=== PATIENT | female | born 1945 | race Caucasian/White ===

== ENCOUNTER 2018-07-22 13:52 | Emergency (ER) | payer MEDICARE, OTHER ==
[~2018-07-22] VITALS: Ht 165.1 cm; Wt 111.6 kg
[~2018-07-22 13:52] MED LIST: ADVIL LIQUI-GE200 MG PO; ATIVAN1 MG PO; BACTROBAN22 GM TOP; DOXYCYCLINE HY100 MG PO; GLUCOPHAGE500 MG PO; HYDROCHLOROTHIA50 MG PO; LOSARTAN POTASS50 MG PO; MS CONTIN15 MG PO; MS CONTIN30 MG PO; NORCO 10-325 T1 EACH PO; NORCO 7.5-3251 EACH PO; ONE DAILY WITH1 EACH PO; PERCOCET 5-3251 EACH PO; ROBAXIN-750750 MG NG; TESSALON PERLE100 MG PO; VITAMIN B COMP1 EACH PO; VITAMIN D2000 UNI1 PO; ZESTRIL10 MG PO
--- OUTSIDE RECORDS SUMMARY | 2018-07-22 15:26 | XMS | Clinical Summary ---
Demographics + + + | Address | [address] | | | [place] [address] | + + + | Home Phone | | + + + | Preferred Language | Unknown | + + + | Marital Status | | + + + | Orthodox Affiliation | 1077 | + + + | Race | Unknown | + + + | Ethnic Group | Unknown | + + + Author + + + | Author | [facility] | | | and [place] | + + + | Organization | [facility] | | | and [place] | + + + | Address | Unknown | + + + | Phone | Unavailable | + + + Support + + + + + | Name | Relationship | Address | Phone | + + + + + | Marilynn Fernandez | ECON | [address] | | | | | [place] | | | | | [address] | | + + + + + | Rahul Moss | ECON | NA | | | | | [place] | | + + + + + Care Team Providers + +------+ + | Care Handle Machine Operator Name | Role | Phone | + +------+ + | Concepción Correa | PP | | + +------+ + Allergies + + + + + + | Active Allergy | Reactions | Severity | Noted | Comments | | | | | Date | | + + + + + + | Carvedilol | | | 08/07/20 | | | | | | 17 | | + + + + + + | Codeine | Other (See Comments) | Low | 03/28/20 | headaches | | | | | 17 | | + + + + + + | Sulfa Antibiotics | Keena, Other (See | Medium | 03/28/20 | Tongue swelling | | | Comments) | | 17 | | + + + + + + Current Medications + + +--------+---------+------+------+-------+ | Prescription | Sig. | Disp. | Refills | Star | End | Statu | | | | | | t | Date | s | | | | | | Date | | | + + +--------+---------+------+------+-------+ | | Take 1 tablet by | | 1 | 03/2 | | Activ | | losartan-hydrochloro | mouth Daily. | | | 05/17 | | e | | thiazide (HYZAAR) | | | | 17 | | | | 100-25 MG per tablet | | | | | | | + + +--------+---------+------+------+-------+ | Multiple | Take 1 tablet by | | | | | Activ | | Vitamins-Minerals | mouth Daily. | | | | | e | | (CENTRUM SILVER) | | | | | | | | TABS | | | | | | | + + +--------+---------+------+------+-------+ | morphine (MS | Take 2 tablets by | 60 | 0 | 02/1 | | Activ | | CONTIN) 15 mg ER | mouth every 12 | tablet | | 05/17 | | e | | tablet | hours. | | | 18 | | | + + +--------+---------+------+------+-------+ | methocarbamol | Take 1 tablet by | 90 | 1 | 02/1 | | Activ | | (METHOCARBAMOL) 750 | mouth every 6 hours | tablet | | 7/20 | | e | | mg tablet | as needed for Muscle | | | 18 | | | | | spasms. | | | | | | + + +--------+---------+------+------+-------+ | oxyCODONE 10 MG | Take 0.5-1 tablets | 120 | 0 | 02/1 | | Activ | | TABS | by mouth every 6 | tablet | | 7/20 | | e | | | hours as needed for | | | 18 | | | | | Pain. | | | | | | + + +--------+---------+------+------+-------+ Active Problems + + + | Problem | Noted Date | + + + | Obesity (BMI 30-39.9) | 08/02/2017 | + + + | Breast cancer (HCC) | 08/02/2017 | + + + + + | Overview: ACTIVE DIAGNOSIS: Stage IIIC triple negative right | | breast cancer.1. Presentation in June 2012 with complaints | | of enlarging right breast mass.2. Diagnostic mammogram and | | ultrasound on July 16, 2012 were both notable for malignant | | appearing 2.2 cm right breast mass with other nearby malignant | | appearing satellite nodules and the radiographic appearance of | | regionally metastatic disease to the right axilla.3. Right breast | | biopsy was performed on July 26, 2012 returned a grade 3 | | invasive carcinoma of uncertain estrogen receptor expression | | favoring negative and negative for progesterone receptor, | | negative for HER-2/haylee by FISH with an amplification ratio of | | 0.9:1.4. Clinical exam by Dr. Ke Emery on July 07, 2012 was | | notable for the fact that there were no obvious signs of peau | | d'orange to suggest inflammatory breast cancer.5. Dr. Ke Emery | | then performed a right modified radical mastectomy on October 06 | | 2011. Pathological specimen [id number] Norwood | | [facility] was notable for 3 separate | | distinct tumor nodules all of which contained invasive carcinoma | | within the right breast; 2.0 cm, 1.8 cm, and 1.5 cm respectively. | | All 3 tumor nodules were grade 3 and all were estrogen receptor | | negative. A total of 20 right axillary lymph nodes removed and | | all 20 of them contained regionally metastatic disease. The | | presence or absence of extracapsular extension was not | | specifically commented upon.6. She had a PET/CT scan performed on | | October 23, 2012 that was notable for the absence of any | | radiographic evidence of metastatic disease.7. She is status post | | left anterior chest Port-A-Cath by Dr. Ke Emery; this device | | remains in situ and is functional.8. Status post 4 cycles of | | adjuvant TC chemotherapy October 11, 2012 through December 06 | | 2012.9. Status post radiation therapy to the right chest wall of | | the [facility] | | [facility] December 30, 2012 through January | | 201210. Presentation with right upper quadrant pain and | | elevation of tumor marker CA 15 | | | | 3 on July 18, 2013.11. PET/CT scan on June 2013 | | demonstrated a less than 1 cm area of hypermetabolic activity | | within the dome of the liver, SUV 5.77. However further | | subsequent testing with a "triple phase" CT scan of the abdomen | | with contrast on August 04, 2013 did not confirm the presence of | | metastatic disease to liver and she continued on observation.12. | | Chronic pain syndrome due to myofascial contraction of the entire | | right chest wall with severe right upper extremity lymphedema | | leading to a chronic pain syndrome.13. Status post laminectomies | | L3, L4, L5 for the purpose of decompression ([place]) August 02 | | 2016. Last Assessment & Plan: Shelly Padilla | | returned to clinic on 08/09/2017 with her daughter, Holley Fernandez | | and her granddaughter for follow-up of her stage IIIC triple | | negative Right breast cancer.Interval history is notable for the | | fact that Shelly underwent a lumbar laminectomy by Dr. Honeycutt on | | August 02, 2017.Chief complaint is lower back pain.Clinical exam | | is notable for severe right upper extremity | | lymphedema.Laboratory exam is notable for no signs of | | dissemination of metastatic breast cancer.Assessment; Stage IIIC | | triple negative right breast cancer. Chronic pain syndrome due to | | right chest wall myofascial contraction and right upper | | extremity lymphedema from breast cancer treatment. Janett's | | chronic pain syndrome has been exacerbated by recent lumbar | | laminectomy. Janett feels that she is not getting enough pain | | relief from oxycodone and is worried about a surgical | | complication. I contacted the Neurosurgery department and they | | graciously agreed to have Janett undergo assessment of her lumbar | | back pain today.Extended, 25 minute encounter spent in active | | listening and counseling regarding issues of both acute and | | chronic pain.Medical oncology follow-up in 2 months with mckayla | | tammy. | + + + +---+ | Radiculopathy, lumbosacral region | | + +---+ | Low back pain | | + +---+ | Intervertebral disc disorders with radiculopathy, lumbar region | | + +---+ | Diabetes (HCC) | | + +---+ Family History + + +------+ + | Medical History | Relation | Name | Comments | + + +------+ + | No Known Problems | Brother | | | + + +------+ + | No Known Problems | Child | | | + + +------+ + | No Known Problems | Child | | | + + +------+ + | Gout | Father | | | + + +------+ + | No Known Problems | Maternal | | | | | Grandfath | | | | | er | | | + + +------+ + | No Known Problems | Maternal | | | | | Grandmoth | | | | | er | | | + + +------+ + | COPD | Mother | | | + + +------+ + | Cancer | Mother | | lung | + + +------+ + | Alcohol abuse | Other | | | + + +------+ + | Arthritis | Other | | | + + +------+ + | Cancer | Other | | | + + +------+ + | Hypertension | Other | | | + + +------+ + | No Known Problems | Paternal | | | | | Grandfath | | | | | er | | | + + +------+ + | No Known Problems | Paternal | | | | | Grandmoth | | | | | er | | | + + +------+ + + +------+ + + | Relation | Name | Status | Comments | + +------+ + + | Brother | | Alive | | + +------+ + + | Child | | Alive | | + +------+ + + | Child | | Alive | | + +------+ + + | Father | | | | | | | (Age | | | | | 86) | | + +------+ + + | Maternal Grandfather | | | | + +------+ + + | Maternal Grandmother | | | | + +------+ + + | Mother | | | | | | | (Age | | | | | 77) | | + +------+ + + | Other | | | | + +------+ + + | Paternal Grandfather | | | | + +------+ + + | Paternal Grandmother | | | | + +------+ + + Social History + +-------+ +--------+------+ | Tobacco Use | Types | Packs/Day | Years | Date | | | | | Used | | + +-------+ +--------+------+ | Never Smoker | | | | | + +-------+ +--------+------+ + +---+---+---+ | Smokeless Tobacco: | | | | | Never Used | | | | + +---+---+---+ + + +---------+ + | Alcohol Use | Drinks/We | oz/Week | Comments | | | ek | | | + + +---------+ + | Yes | | | social | + + +---------+ + + + + | Sex Assigned at | Date Recorded | | | | + + + | Not on file | | + + + Last Filed Vital Signs + + + + | Vital Sign | Reading | Time Taken | + + + + | Blood Pressure | 109/78 | 11/06/20171220 PST | + + + + | Pulse | 94 | 11/06/20171220 PST | + + + + | Temperature | 37.3 C (99.1 F) | 08/09/20171311 PDT | + + + + | Respiratory Rate | 20 | 08/09/20171311 PDT | + + + + | Oxygen Saturation | 93% | 08/09/20171311 PDT | + + + + | Inhaled Oxygen | - | - | | Concentration | | | + + + + | Weight | 113.9 kg (251 lb) | 11/06/20171220 PST | + + + + | Height | 170.2 cm (5' 7") | 11/06/20171220 PST | + + + + | Body Mass Index | 39.31 | 11/06/20171220 PST | + + + + Plan of Treatment + + + + + | Health Maintenance | Due Date | Last Done | Comments | + + + + + | Diabetic Eye Exam | | | | | (Bi-Annually) | 1 | | | + + + + + | Diabetic Foot Exam | | | | | | 1 | | | + + + + + | Hemoglobin A1c Q3 | | | | | Months | 1 | | | + + + + + | Vaccine: | | | | | Dtap/Tdap/Td (1 - | 2 | | | | Tdap) | | | | + + + + + | Colorectal Cancer | | | | | Screening | 3 | | | | (Colonoscopy) | | | | + + + + + | Vaccine: Zoster (1 | | | | | of 2) | 3 | | | + + + + + | Vaccine: | | | | | Pneumococcal 65+ | 8 | | | | High/Highest Risk (1 | | | | | of 2 - PCV13) | | | | + + + + + | Statin Therapy | | | | | (optimal intensity) | 5 | | | + + + + + | Vaccine: Influenza | | | | | (#1) | 8 | | | + + + + + Implants + +--------+--------+ +--------+--------+--------+ | Implanted | Type | Area | Manufacture | Device | Expira | Model | | | | | r | | tion | / | | | | | | Identi | Date | Serial | | | | | | fier | | / Lot | + +--------+--------+ +--------+--------+--------+ | Imp Spn Spcr Peek Xlw | Generi | | NUVASIVE - | | | [id number] | | [id number] - | c | | NVSV | | | 5 / / | | [id number]: Qty: 1 on | | | | | | | | 08/02/2017 by Hank Honeycutt | | | | | | | | DO Jeanette | | | | | | | + +--------+--------+ +--------+--------+--------+ | Soniya Burton Xlct4 10d [id number] | Generi | | NUVASIVE - | | | [id number] | | - [id number]: Qty: 1 | c | | NVSV | | | 5 / / | | on 08/02/2017 by Yinka, | | | | | | | Romeo Reid DO | | | | | | | + +--------+--------+ +--------+--------+--------+ | Imp Nasir Sext 4.75x65 Solera - | Generi | Right: | MEDTRONIC - | | | [id number] | | [id number]: Qty: 2 | c | Back | MEDT | | | [id number] / | | on 08/02/2017 by Yinka, | | | | | | / | | Hank Reid DO | | | | | | | + +--------+--------+ +--------+--------+--------+ | Sepideh Fischeron 10cc Dbm - | Graft | | MEDTRONIC - | | 01/18/ | [id number] | | [id number]: Qty: 1 | | | MEDT | | 2020 | | | on 08/02/2017 by Yinka, | | | | | | [id number] | | Hank Reid DO | | | | | | 2-035 | | | | | | | | / | + +--------+--------+ +--------+--------+--------+ | Screw 4.75 Xtb Adonis Mas | Screw | Right: | MEDTRONIC - | | | [id number] | | 5.5x60 - [id number]: | | Back | MEDT | | | [id number] | | Qty: 1 on 08/02/2017 by | | | | | | / / | | Hank Honeycutt DO | | | | | | | + +--------+--------+ +--------+--------+--------+ | Screw 4.75 Xtb Adonis Mas | Screw | Right: | MEDTRONIC - | | | [id number] | | 5.5x65 - [id number]: | | Back | MEDT | | | [id number] | | Qty: 1 on 08/02/2017 by | | | | | | / / | | Hank Honeycutt DO | | | | | | | + +--------+--------+ +--------+--------+--------+ | Screw 4.75 Xtb Adonis Mas | Screw | Right: | MEDTRONIC - | | | [id number] | | 6.5x65 - [id number]: | | Back | MEDT | | | 68220 | | Qty: 2 on 08/02/2017 by | | | | | | / / | | Hank Honeycutt DO | | | | | | | + +--------+--------+ +--------+--------+--------+ | Screw 4.75 Xtb Adonis Mas | Screw | Right: | MEDTRONIC - | | | [id number] | | 7.5x65 - [id number]: | | Back | MEDT | | | [id number] | | Qty: 2 on 08/02/2017 by | | | | | | / / | | Hank Honeycutt DO | | | | | | | + +--------+--------+ +--------+--------+--------+ | Screw Set Slra Perc Ti 4.75 - | Screw | Right: | MEDTRONIC - | | | [id number] | | [id number]: Qty: 6 | | Back | MEDT | | | 0 / / | | on 08/02/2017 by Yinka, | | | | | | | | Hank Reid DO | | | | | | | + +--------+--------+ +--------+--------+--------+ Results Not on filefrom Last 3 Months Insurance + +--------+ +--------+ +---------+ | Payer | Benefi | Subscriber | Type | Phone | Address | | | t Plan | ID | | | | | | / | | | | | | | Group | | | | | + +--------+ +--------+ +---------+ | MEDICARE | MEDICA | [id number] | Medica | [phone] | | | | RE | | re | [phone] | | | | PART A | | | | | | | AND B | | | | | + +--------+ +--------+ +---------+ | MEDICAID [place] | MEDICA | [id number] | Medica | [phone] | | | [place] | | id | [phone] | | | | PLUS | | | | | + +--------+ +--------+ +---------+ + +--------+ +--------+ + + | Guarantor Name | Accoun | Relation to | Date | Phone | Billing Address | | | t Type | Patient | of | | | | | | | | | | + +--------+ +--------+ + + | AFSHIN PADILLA | Person | Self [birth year] | Home: | [address] | | [place] | al/Fam | | 1945 | [phone] | [place] | | | [place] | | | [phone] | [phone] | + +--------+ +--------+ + +
--- OUTSIDE RECORDS SUMMARY | 2018-07-22 15:26 | XMS | Clinical Summary ---
Demographics + + + | Address | [address] | | | [place] [address] | + + + | Home Phone | | + + + | Preferred Language | Unknown | + + + | Marital Status | | + + + | Jewish Affiliation | 1077 | + + + | Race | Unknown | + + + | Ethnic Group | Unknown | + + + Author + + + | Author | [facility] | | | and [place] | + + + | Organization | [facility] | | | and [...] [place] | | | | | [address] | | + + + + + | Rahul Moss | ECON | NA | | | | | [place] | | + + + + + Care Team Providers + +------+ + | Care Professor Of Architecture Name | Role | Phone | + [...] October 06 | | 2011. Pathological specimen [id number] Norwood | | [facility] was notable for 3 separate | [...] right chest wall of | | the [facility] | | [facility] December 30, 2012 through January [...] | | NUVASIVE - | | | [id number] | | [id number] - | c | | NVSV | | | 5 / / | | [id number]: Qty: 1 on | | | | | | | | 08/02/2017 by Hank Honeycutt | | | | | | | | DO Jeanette | | | | | | | + +--------+--------+ +--------+--------+--------+ | Soniya Burton Xlct4 10d [id number] | Generi | | NUVASIVE - | | | [id number] | | - [id number]: Qty: 1 | c | | NVSV | | | 5 / / | | on 08/02/2017 by Yinka, | | | | | | | Romeo Reid DO | | | | | | | + +--------+--------+ +--------+--------+--------+ | Imp Nasir Sext 4.75x65 Solera - | Generi | Right: | MEDTRONIC - | | | [id number] | | [id number]: Qty: 2 | c | Back | MEDT | | | [id number] / | | on 08/02/2017 by Yinka, | | | | | | / | | Hank Reid DO | | | | | | | + +--------+--------+ +--------+--------+--------+ | Sepideh Fischeron 10cc Dbm - | Graft | | MEDTRONIC - | | 01/18/ | [id number] | | [id number]: Qty: 1 | | | MEDT | [...] Right: | MEDTRONIC - | | | [id number] | | 5.5x60 - [id number]: | | Back | MEDT | | | [id number] | | Qty: 1 on 08/02/2017 by | | | | | | / / | | Hank Honeycutt DO | | | | | | | + +--------+--------+ +--------+--------+--------+ | Screw 4.75 Xtb Adonis Mas | Screw | Right: | MEDTRONIC - | | | 113142 | | 5.5x65 - [id number]: | | Back | MEDT | | | [id number] | | Qty: 1 on 08/02/2017 by | | | | | | / / | | Hank Honeycutt DO | | | | | | | + +--------+--------+ +--------+--------+--------+ | Screw 4.75 Xtb Adonis Mas | Screw | Right: | MEDTRONIC - | | | [id number] | | 6.5x65 - [id number]: | | Back | MEDT | | | [id number] | | Qty: 2 on 08/02/2017 by | | | | | | / / | | Hank Honeycutt DO | | | | | | | + +--------+--------+ +--------+--------+--------+ | Screw 4.75 Xtb Adonis Mas | Screw | Right: | MEDTRONIC - | | | [id number] | | 7.5x65 - [id number]: | | Back | MEDT | | | 72500 | | Qty: 2 on 08/02/2017 by | | | | | | / / | | Hank Honeycutt DO | | | | | | | + +--------+--------+ +--------+--------+--------+ | Screw Set Slra Perc Ti 4.75 - | Screw | Right: | MEDTRONIC - | | | [id number] | | [id number]: Qty: 6 | | Back | MEDT [...] +--------+ +---------+ | MEDICARE | MEDICA | [id number] | Medica | [phone] | | | | RE | | re | [phone] | | | | PART A | | | | | | | AND B | | | | | + +--------+ +--------+ +---------+ | MEDICAID [place] | MEDICA | [id number] | Medica | [phone] | | | [...] | [place] | | | [phone] | [phone] | + +--------+ +--------+ + +
== END 2018-07-22 16:05 | disposition home or self-care (01) ==
LOC: ED 13:52
DX: R20.0 Anesthesia of skin (principal); I10 Essential (primary) hypertension; E11.9 Type 2 diabetes mellitus without complications; Z88.2 Allergy status to sulfonamides; Z88.8 Allergy status to other drugs, medicaments and biological substances; Z88.5 Allergy status to narcotic agent; Z79.899 Other long term (current) drug therapy
CPT/HCPCS: 70450; 99284

== ENCOUNTER 2019-07-02 10:54 | Inpatient (IN) | payer MEDICARE, OTHER ==
[~2019-07-02] VITALS: Ht 170.2 cm; Wt 112.9 kg
[~2019-07-02 10:54] MED LIST changes: +ALDARA1 EACH TOP; +NEURONTIN100 MG PO
--- NOTE | 2019-07-02 15:22 | NUR ---
PATIENT ARRIVED TO MED SURG.
--- NOTE | 2019-07-02 15:53 | NUR ---
PATIENT ADMITTED SWING BED ON MED SURG. PATIENT 2-3 PERSON TRANSFER FROM WHEEL CHAIR TO BED, USING WALKER. PATIENT REPORTS 4/10 RIGHT LEG PAIN, CRAMPING PAIN THAT SHE HAS EXPERIENCED SINCE BACK SURGERY. RIGHT LEG BECOMES PAINFUL 7-8/10 WITH ACTIVITY AND 3-4/10 WITH REST. PATIENT HAS LARGE BANDAID ON LOWER BACK FROM RECENT BACK SURGERY, REPORTS SURGICAL CHAPITO WERE REMOVED TODAY AT [facility].
[2019-07-02] MEDS ORDERED: CONSTULOSE10 GM/15 M PO (16:51)
[2019-07-02] MEDS ORDERED: CYCLOBENZAPRINE10 MG PO (16:51)
[2019-07-02] MEDS ORDERED: OXYCODONE HCL5 MG PO (16:52)
[2019-07-02] MEDS ORDERED: LOSARTAN-HCTZ1 EAC1 PO (16:53)
[2019-07-02] MEDS ORDERED: NEURONTIN300 MG PO (16:53)
--- NOTE | 2019-07-02 18:05 | NUR ---
PATIENT UPSET WITH ADA DIET, DR. SCHMIDT CHANGED DIET TO REGULAR. DISCUSSED WITH PATIENT ALL HER NEW ORDERS AND HER EXPECTED PARTICIPATION IN PT AND OT FOR SWINGBED. PATIENT SEEMS OKAY WITH PROGRAM.
--- NOTE | 2019-07-02 19:52 | NUR ---
EOUNDED CHARGE. PATIENT IS RESTING IN BED. DISCUSSED PLAN FOR NIGHT CARE. LUCY DUFF IN ROOM TO ASSIST W/NIGHT CARE. NO FURTHER NEEDS NOTED. CALL LIGHT IN REACH.
--- NOTE | 2019-07-02 21:09 | NUR ---
changed into gown, needed assistance. low back band aid inplace. R arm restrictions due to mastectomy and lymphadema of R arm. Brace off at her requests, Declines SCDS due to painful legs when placed. Very obese, generalized edema 2+ R arm and 1+ LE at ankles and feet. Has PT restrictions. Walked to br, tolerated well, voided. No c/o pain. Watching tv. Tolerating fluids, ate 25% of siet. IS at bedside. Coop with assessment. Continues on swing bed status. No IV site
--- NOTE | 2019-07-03 00:33 | NUR ---
Resting, hob elevated. R arm Compression stocking still off, call light at bedside
--- NOTE | 2019-07-03 01:04 | NUR ---
Pt turning self in bed, c/o back pain 04/07. Medicated with flexoril 10mg and Oxycodone 5mg po, no c/ n/v. R arm compression sleeve off, teacahing done, pt receptive, declines to use it at HS, continues to decline Dr Christiana gonzalez was notified earlier in shift, no new orders
--- NOTE | 2019-07-03 04:50 | NUR ---
PT CURRENTLY RESTING, EYES CLOSED, NO RESP DISTRESS. BANDAID ON LOW BACK SURGICAL AREA INPLACE. PT C/O BACK PAIN WAS MEDICATED WITH FLEXERIL AND OXYCODONE WITH GOOD PAIN CONTROL. R ARM RESTRICTIONS DUE TO LYMPHEDEMA. PT HAS COMPRESSION SLEEVE FOR R ARM, NOT IN USE AT THIS TIME HER CHOICE, DECLINED TO USE BRADY HOSES TOO. TEACHING DONE R/T COMPRESSION ITEMS, SEMI RECEPTIVE. WAS ANXIOUS AT BEGINING OF SHIFT, REASSURED. PT HAS MULTIPLE MULTIPLE MOBILITY RESTRICTIONS DUE TO RECENT BACK SURGERY, COOPERATIVE. UP TO BR W 1PA, TOLERATED WELL, AND FOLLOWED PHYSICAL THERAPY RESTRICTIONS. PT ON SWING BED STATUS, CALL LIGHT AND FLUIDS AT BEDSIDE.
--- NOTE | 2019-07-03 05:45 | NUR ---
UP TO BR, VOIDED LARGE AMOUNT OF URINE, BACK TO BED 1PA, TOLERATD WELL, NO C/O PAIN, HELPED WITH REPOSITIONING, LEGS ELEVATED, CALL LIGHT AND FLUIDS AT BEDSIDE
--- NOTE | 2019-07-03 07:10 | NUR ---
REPORT RECIEVED FROM W[place]MELON HARVESTING SUPERVISOR RN. PT IN [facility]. REPORTING PAIN 05/07. PLAN TO MEDICATE. TEDHOSE AND ARM SLEVE NOT ON PER PT REQUEST. PT WITHOUT IV ACCESS. CALL LIGHT IN REACH.
--- NOTE | 2019-07-03 10:41 | NUR ---
PATIENT SITTING UP IN BED WATCHING TV. ASSESSMENT COMPLETE. LUNG SOUNDS DIMINISHED IN LOWER BASES, CLEAR IN UPPERS. PATIENT EXPRESSED CONCERN OVER NOT FULLY UNDERSTANDING HER PLAN OF CARE. PATIENT REASSURED AND PLAN OF CARE REINFORCED WITH HER. PATIENT REPORTS PAIN OF 7/10 AND IS PROVIDED WITH FLEXERIL AND TYLENOL. PATIENT DENIES ANY FURTHER NEEDS AT THIS TIME, CALL LIGHT WITHIN REACH.
--- NOTE | 2019-07-03 11:58 | NUR ---
PATIENT VOIDS 550 ML USING BEDSIDE COMMODE. PATIENT AMBULATED TO BEDSIDE CHAIR WITH ONE PERSON SBA, UP TO CHAIR FOR 45 MINUTES. LUNCH DELIVERED. PATIENT AMBULATED BACK TO BED WITH TWO PERSON ASSIST. PATIENT REPORTS INCREASING PAIN DUE TO SITTING IN CHAIR, PAIN MEDICATION TO BE ADMINISTERED. LINENS CHANGED, BED BATH PROVIDED. PATIENT DENIES ANY FURTHER NEEDS AT THIS TIME, CALL LIGHT WITHIN REACH.
--- NOTE | 2019-07-03 14:06 | NUR ---
PT SITTING UP IN BED, HAS JUST FINISHED LUNCH. PT SWING BED STATUS, WAS PLEASED WHEN I GAVE HER GUIDEPOSTS. STAFF IN TO CARE FOR PT, EXTENDED A BLESSING, WILL FOLLOW NEEDED
--- NOTE | 2019-07-03 14:50 | NUR ---
PT IN ROOM WORKING WITH PATIENT. PATIENT AMBULATED AROUND ROOM AND BACK TO BED. NEW BANDAID APPLIED TO LAMINECTOMY SITE. HOT PAD APPLIED TO PATIENTS LOWER BACK. PATIENT REFUSED TO HAVE HER ARM SLEEVE PLACED ON HER RIGHT ARM. PATIENT DENIES ANY FURTHER NEEDS AT THIS TIME, CALL LIGHT WITHIN REACH.
--- NOTE | 2019-07-03 18:37 | NUR ---
PATIENT HAD A GOOD DAY. PAIN WELL CONTROLLED WITH FLEXERIL AND OXYCODONE. WORKED WITH PT AND SPENT 45 MINUTES IN THE CHAIR. C/O OF SLIGHT BACK PAIN WITH SITTING UP. PATIENT REFUSED HER R ARM SLEEVE AND BRADY HOSE D/T PAIN. 1-2 PERSON SBA, ESPECIALLY OUT OF THE CHAIR. ABLE TO WALK SHORT DISTANCES, USING BEDSIDE COMMODE.
--- NOTE | 2019-07-03 20:34 | NUR ---
IN BED, C/O 9/10 BACK SURGICAL PAIN, MEDICATED WITH SCHEDULED TYLENOL AND OXYCODONE 10MG PO. MEDICATED WITH TRAZADONE 50MG PO TOO INSOMNIA. R ARM EDEMATOUS/PT DECLINES TO USE R ARM COMPRESSION SLEEVE FOR ARM LYMPHEDEMA, CONTINUES TO DECLINE BRADY HOSE. 2+ R ARM ARDE, 1+ LE. TOLERATING LIQUIDS WELL. PT AWARE OF MOBILITY/TRANSFER PRECAUTIONS. 1-2PA. NO C/O N/V. CALL LIGHT AT BEDSIDE
--- NOTE | 2019-07-03 23:09 | NUR ---
Resting, eyes closed, sleeping on r side. R upper arm still very edematous, continues to decline to use compression arm sleeve, risks and precautions explained earlier and yesterday. semi receptive, but still declines to wear it, good cms. elevated in pillows at this time. legs elevated in pillows, no further c/.o back pain. call light and fluids at bedside
--- NOTE | 2019-07-04 00:44 | NUR ---
Resting, eyes closed, no resp distress, on room air, no further c/o pain. call light at bedside
--- NOTE | 2019-07-04 03:02 | NUR ---
eyes closed, no resp distress, call light at bedside
--- NOTE | 2019-07-04 04:26 | NUR ---
Pt awake, c/o back and R groin pain radiating to R toes. Medicatd with 2 OXycodone 10mg po. Repositions self in bed. Tolerating liquids well, call light at bedside
--- NOTE | 2019-07-04 05:16 | NUR ---
patient used call light to ask for assistance using the BSC. She tolerated moving very well with some assistance sitting up, she was impressed with herself. She transferred via fww and had no issues. patient returned to bed with new ice packs and nothing more needed at this time.
--- NOTE | 2019-07-04 07:10 | NUR ---
REPORT RECEIVED FROM CHRISTIANNE SMITH RN. PT IN BED AAO. REPORTS SOME PAIN. PLAN TO ADMINISTER PRN PAIN MEDICAITONS. CALL LIGHT IN REACH DENIES NEEDS.
--- NOTE | 2019-07-04 10:23 | NUR ---
PAIN 7/10 PRN PAIN MEDICATIONS GIVEN.(SEE MAR) ASSESSMENT COMPLETED. LUNGS DIM IN BASES. HEART IRREGULAR. BOWEL TONES ACTIVE. SBA WITH FWW TO CHAIR. PLAN TO SIT FOR 45 MINS. CALL LIGHT AND PERSONAL ITEMS WITHIN REACH.
--- NOTE | 2019-07-04 11:00 | NUR ---
PT UP AMBULATING AND WORK WITH PHYSICAL THERAPY IN FRAZIER WAY WITH FWW. ABLE TO WALK 72 FEET, PER PATIENT. BACK TO CHAIR FOR LUNCH. CALL LIGHT IN REACH.
--- NOTE | 2019-07-04 11:22 | NUR ---
VISITED WITH PT FOR APPROXIMATELY AN HOUR, TALKING WITH HER ABOUT THE TRANSITIONAL SWING BED PROGRAM AND LETTING HER TALK ABOUT HER FEELINGS AND HEARING HER TALK ABOUT ALL THAT HAS TRANSPIRED IN THE LAST 2 WEEKS OR SO AND HOW SHE NEVER HAD TIME TO PREPARE FOR SURGERY, LET ALONE BEING TRANSFERED TO OUR TRANSITIONAL CARE BED HERE. SHE APOLIGIZED FOR BEING CRANKY, STATING "I AM NOT NORMALLY LIKE THIS." PT DENIED FURTHER QUESTIONS, OR NEEDS AT THE TIME I LEFT THE ROOM.
--- NOTE | 2019-07-04 11:50 | NUR ---
PT WITH SBA TO BATHROOM. XL BM AND VOID. THEN BACK TO CHAIR. CALL LIGHT IN REACH. DENEIS NEEDS.
--- NOTE | 2019-07-04 12:26 | NUR ---
SBA BACK TO BED. TOLERATED WELL CALL LIGHT IN REACH.
--- NOTE | 2019-07-04 14:46 | NUR ---
PT WORKED WITH PHYSICAL THERAPY THEN UP TO CHAIR AT 1410. TOLERATING WELL. BEDBATH PROVIDED D/T PT REFUSING SHOWER. PT REFUSING ARM SLEEVE WELL. CALL LIGHT IN REACH. WATER REFRESHED.
--- NOTE | 2019-07-04 15:59 | NUR ---
SCHEDULED MEDICATION AND NEURONTIN GIVEN. REPORTING PAIN 04/07. DENIES FURTHER NEEDS. CALL LIGHT IN REACH.
--- NOTE | 2019-07-04 16:12 | NUR ---
HELPED PATIENT WALK FROM THE BATHROOM TO HER CHAIR TODAY. ALSO THE LAST TIME THE PATIENT CALLED HELPED HER FROM THE BATHROOM BACK TO HER BED. PATIENT IS NOW IN BED.
--- NOTE | 2019-07-04 16:16 | NUR ---
PATIENT WASHED HER FACE AND BRUSHED HER TEETH WITH OCCUPATIONAL THERAPIST THIS MORNING. I ASKED HER IF SHE WOULD LIKE TO TAKE A SHOWER AND SHE DIDN'T WANT TOO. SHE SAID MAYBE A BED BATH I WILL GO BACK IN AND ASK AGAIN.
--- NOTE | 2019-07-04 19:49 | NUR ---
REPORT RECEIVED, PT RESTING IN BED, DENIES ANY NEEDS AT THIS TIME, CALL LIGHT WITHIN REACH. FALL PRECAUTIONS IN PLACE.
--- NOTE | 2019-07-04 21:38 | NUR ---
PT UP TO BATHROOM, 1 PERSON ASSIST/FWW WITH ASSISTANCE FROM LUCY DUFF, PT BACK TO BED AT THIS TIME, PT C/O 8/10 PAIN RELATED TO RIGHT KNEE/HIP/BACK, PT GIVEN PRN PAIN MEDICATION PER EMAR WELL SCHEDULED NIGHT TIME MEDS, PT TOLERATED WELL. PT ON RA, NO C/O SOB/CP, VSS, PT'S LS CLEAR, LYMPHEDEMA NOTED TO RIGHT ARM, PULSE FELT, PT STATES THAT CURRENT CONDITION OF LYMPHEDEMA IS IMPROVED FROM PREVIOUS, PT EDUCATED REGARDING PAIN MANAGEMENT, PT DENIES ANY NEEDS AT THIS TIME, CALL LIGHT WITHIN REACH. FALL PRECAUTIONS IN PLACE. PT AOX4, APPROPRIATE.
--- NOTE | 2019-07-04 23:30 | NUR ---
PT RESTING IN BED, NO NEEDS AT THIS TIME, CALL LIGHT WITHIN REACH. FALL PRECAUTIONS IN PLACE.
--- NOTE | 2019-07-05 01:21 | NUR ---
CALL LIGHT ANSWERED, PT C/O SPASMING IN BACK, REQUESTING PRN FLEXERIL, PT GIVEN PRN FLEXERIL PER EMAR, PT ALSO GIVEN HEAT PAD PER REQUEST, PT REMAINS RESTING IN BED, WILL CONTINUE TO MONITOR. CALL LIGHT WITHIN REACH.
--- NOTE | 2019-07-05 03:08 | NUR ---
PT RESTING IN BED, EYES CLOSED, BREATHS EVEN, UNLABORED, NO NEEDS AT THIS TIME, NO SIGNS OF PAIN OR DISCOMFORT, CALL LIGHT WITHIN REACH. FALL PRECAUTIONS IN PLACE.
--- NOTE | 2019-07-05 04:52 | NUR ---
PT AOX4, APPROPRIATE, 1 PERSON ASSIST/FWW, PT RECIEVED PRN PAIN MEDICATION X1 THIS SHIFT WELL PRN FLEXERIL RELATED TO SPASMS X1, PT RESTED WELL FOR MOST OF SHIFT, VSS, UO QS, SPINAL PRECAUTIONS, TOLERATING REGULAR DIET, PT CONTINUES TO REFUSE STOCKINGS. INCISION TO BACK REMAINS C/D/I, USES CALL LIGHT APPROPRIATELY, REMAINS SWING BED.
--- NOTE | 2019-07-05 05:29 | NUR ---
PT UP TO BSC, C/O 04/07 PAIN RELATED TO BACK, PRN PAIN MEDICATION GIVEN PER EMAR. PT VOIDED 500 ML'S, PT BACK TO BED NOW WITH 1 PERSON ASSIST/FWW. PT DENIES FURTHER NEEDS, CALL LIGHT WITHIN REACH. FALL PRECAUTIONS IN PLACE.
--- NOTE | 2019-07-05 07:22 | NUR ---
PT RESTING IN BED AT SHIFT REPORT ALERT AND COOPERATIVE. SHE RATES HER PAIN /10 STATING IT'S NEVER BELOW THAT. WARM PACK APPLIED, MEDS DUE AT 9AM. NEEDED ITEMS IN REACH PT REFUSES UP TO THE CHAIR WELL TEDS AND ARM SLEEVE.
--- NOTE | 2019-07-05 09:09 | NUR ---
PATIENT RESTING IN BED. PATIENT TRANSFERRED TO CHAIR. PATIENT USES A WALKER. ONE PERSON ASSISTING. LINENS CHANGED. SETS UP BATHROOM FOR SHOWER. VITAL SIGNS AND I&O DONE. CALL LIGHT WITHIN REACH. NO OTHER NEEDS AT THIS TIME
--- NOTE | 2019-07-05 09:29 | NUR ---
CALL LIGHT ANSWERED. PATIENT SITTING UP IN CHAIR. PATIENT TRANSFERRED TO BED. PATIENT USES A WALKER. ONE PERSON ASSISTING. CALL LIGHT WITHIN REACH. NO OTHER NEEDS AT THIS TIME
--- NOTE | 2019-07-05 09:52 | NUR ---
PT UP TO THE CHAIR FOR BREAKFAST, RETURNS TO RESTING IN BED AFTERWARD. CONTINUES TO C/O OF MUSCLE SPASMS, EVEN AFTER MEDS WARM PACK PROVIDED FOR BACK. PT DEMONSTRATES APPROPRIATE USE OF I.S. STATES SHE USES IT AT REGULAR INTERVALS. PT DENIES OTHER DISCOMFORTS OR NEEDS AT THIS TIME
--- NOTE | 2019-07-05 10:55 | NUR ---
checking back after tylenol and heat, pt appears to be resting soundly. no s/s of discomfort
--- NOTE | 2019-07-05 13:08 | NUR ---
PATIENT RESTING IN BED. VITAL SIGNS AND I&O DONE. PATIENT GOES TO USE BATHROOM. PATIENT USES WALKER. ONE PERSON ASSISTING. PATIENT BACKS TO CHAIR. CALL LIGHT WITHIN REACH. NO OTHER NEEDS AT THIS TIME
--- NOTE | 2019-07-05 14:11 | NUR ---
pt up ambulates the canales with p/t, well tolerated. returns to chair states she wants to shower after a bit. no spasms at this time, "some" pain remains but she states she feels "pretty good over all"
--- NOTE | 2019-07-05 14:58 | NUR ---
PATIENT SITTING UP IN CHAIR. PATIENT GOES TO TAKE A SHOWER. PATIENT USES WALKER. PATIENT TAKES A SHOWER. ONE PERSON ASSISTING. PATIENT USING A CLEAN GOWN AND ADULT PULL UP. PATIENT BACKS TO CHAIR. WARM BLANKET PROVIDED. CALL LIGHT WITHIN REACH. NO OTHER NEEDS AT THIS TIME
--- NOTE | 2019-07-05 16:20 | NUR ---
PT RESTING IN BED EYES CLOSED BREATHING EVEN AND UNLABORED APPEARS COMFORTABLE
--- NOTE | 2019-07-05 17:42 | NUR ---
PT HAS HAD AN ACTIVE DAY, UP IN THE FRAZIER TO AMBULATE, HAS WORKED WITH P/T, AND BEEN TO THE RECLINER SEVERAL TIMES. RECEIVES FLEXARIL AND OXY PRN HAS NEEDED IT EACH TIME AVAILABLE THIS SHIFT DUE TO SPASMS IN HER LEG AND BACK. HEAT HAS HELPED WITH THIS WELL. INCISION INTACT WITH SS IN PLACE NO SL. SBA WITH WALKER
--- NOTE | 2019-07-05 18:25 | NUR ---
PATIENT USING BATHROOM. RN IN ROOM. I&O DONE. CALL LIGHT WITHIN REACH. NO OTHER NEEDS AT THIS TIME
--- NOTE | 2019-07-05 19:20 | NUR ---
CHARGE NURSE REPORT RECEIVED FROM TYRA. NO NEEDS AT THIS TIME.
--- NOTE | 2019-07-05 19:25 | NUR ---
SHIFT REPORT RECEIVED FROM DAYSHIFT NIRU EATON AT BEDSIDE. PT AWAKE AND RESTING IN BED, DENIES NEEDS AT THIS TIME. CALL LIGHT IN REACH.
--- NOTE | 2019-07-05 20:30 | NUR ---
INFORMED BY PT THAT PT HAS A PORT TO HER LEFT CHEST. PER PT, "I GET MY PORT ACCESSED EVERY TWO MONTHS AND I HAD TO MISS MY LAST APPOINTMENT. IT WAS TWO MONTHS THIS PAST SUNDAY". THIS RN NOTIFED DR SCHMIDT OF PT'S CONCERNS. NO NEW ORDERS RECEIVED, PER MD, HE WILL EVALUATE THE SITUATION IN THE MORNING. PT AWARE AND VERBALIZED UNDERSTANDING.
--- NOTE | 2019-07-05 21:00 | NUR ---
ASSESSMENT COMPLETE, SCHEDULED MEDICATIONS GIVEN (SEE EMAR). PRN FLEXERIL ALSO GIVEN. VSS, PT IN GOOD SPIRITS, INTERACTING WITH NURSING STAFF. PT A/OX4. INCISION TO LOWER BACK WELL APPROXIMATED, STERI STRIPS IN PLACE WITH SOME LAYING IN BED DUE TO PT REPOSITIONING. NO SIGNS OF INFECTION NOTED, WILL CONTINUE TO MONITOR. RIGHT ARM BRACE IN PLACE. NO FURTHER NEEDS, CALL LIGHT IN REACH.
--- NOTE | 2019-07-05 21:19 | NUR ---
NIRU Brice asked for assistance boosting patient in bed. Patient requested fresh ice water.
--- NOTE | 2019-07-06 01:11 | NUR ---
PT RESTING IN BED, REPORTING "BACK SPASM". UNABLE TO GIVE FLEXERIL AT THIS TIME, HEAT PACK PROVIDED BY OMEGA AYALA. NO FURTHER NEEDS, CALL LIGHT IN REACH.
--- NOTE | 2019-07-06 02:30 | NUR ---
PT UP TO VOID WITH HELP FROM OMEGA AYALA. INFOMRED BY OMEGA AYALA OF PT'S PINK BACK. WRAPPED HEAT PACK RECENTLY IN PLACE, REMOVED. TEMP NORMAL TO THE TOUCH, SLIGHT PINKNESS NOTED, PT DENIES PAIN ASSOCIATED WITH HEAT BACK. PT WAS ALSO LAYING ON BACK. WILL MONITOR. PT CONTINUES TO REFUSE BRADY HOSE AT THIS TIME. PER OMEGA AYALA, PT ALSO REFUSES ARM WRAP/SLEEVE AT THIS TIME. CALL LIGHT IN REACH.
--- NOTE | 2019-07-06 04:00 | NUR ---
PT RESTING IN BED, EYES CLOSED. RR WNL. NO DISTRESS NOTED, PT APPEARS COMFORTABLE. CALL LIGHT IN REACH.
--- NOTE | 2019-07-06 04:30 | NUR ---
PT HAD A GOOD NIGHT OVERALL. PT SWINGBED, VSS. A/OX4. STERISTRIPS TO LOWER BACK INCISION, SITE WELL APROXIMATED. PAIN CONTROLLED WITH PRN OXYCODONE, PRN FLEXERIL, AND SCHEDULED TYLENOL. SBA WITH FWW WITH AMBULATION. ORDERS TO MINIMIZE TWISTING, TURNING, AND BENDING. PT AT TIMES COMPLIANT IN ARM SLEEVE, REFUSED BRADY HOSE ALL SHIFT. REGULAR DIET, TOLERATING WELL. NO NAUSEA THIS SHIFT. NO BM THIS SHIFT. USES CALL LIGHT APPROPERIATELY.
--- NOTE | 2019-07-06 06:31 | NUR ---
PT RESTING IN BED, EYES CLOSED. RR WNL WITH NO DISTRESS NOTED. PT'S TOTAL UO GOAL FOR HOSPITALIST PTS WAS 600MLS/SHIFT. PT VOIDED 400 THIS SHIFT. NO IV ASSESS, PO INTAKE ENCOURAGED THROUGHOUT SHIFT WHEN AWAKE. PLANT WRAPPER AGREES NO NEED TO NOTIFY MD FOR RESONS ABOVE.
--- NOTE | 2019-07-06 07:45 | NUR ---
Pt appears to be sleeping, resp even and non labored. Call light within reach. No needs at this time.
--- NOTE | 2019-07-06 08:30 | NUR ---
ADMIN OXYCODONE 10MG PO FOR REPORTS OF 9/10 BACK PAIN.
--- NOTE | 2019-07-06 09:47 | NUR ---
PATEINT STATES SHE IS SORE AND FEELS "LIKE THE FLU" PATIENT IS UP IN CHAIR
--- NOTE | 2019-07-06 10:20 | NUR ---
Attempted to flush port to left chest, however unable d/t site penetration difficulty. Attempted twice; both times needle appeared to not puncture the port. Per pt, the last several port flushed that she's had the staff was unable to get return blood flow. Discussed with tania Roberts RN that because it's not emergent, tomorrow NIRU Lewis will attempt again. Attempted left port flushes were performed per protocol. Pt tolerated well.
--- NOTE | 2019-07-06 10:33 | NUR ---
LEFT CHEST PORT PUNCTURED X2 WITH IN ATTEMPT TO FLUSH WITH NS AND HEPARIN PER PROTOCOL. PORT WAS ACCESSED AND DEACCESSED USING PROTOCOL. NO REDNESS OR SWELLING AT PORT SITE. PT TOLERATED WELL.
--- NOTE | 2019-07-06 14:54 | NUR ---
Admin oxycodone 10mg po for reports of 6/10 back pain.
--- NOTE | 2019-07-06 19:14 | NUR ---
ADMIN OXYCODONE 10MG PO FOR REPORTS OF 6/10 BACK PAIN.
--- NOTE | 2019-07-06 20:19 | NUR ---
ROUNDED CHARGE. LINDEN DUFF AND CHRISTY MARRUFO PRESENT IN ROOM. PATIENT IS AMBULATING BACK TO BED W/FWW A SBA AT THIS TIME. PATIENT DENIES ANY COMMENTS, QUESTIONS OR CONCERNS. NO NEEDS NOTED. CALL LIGHT IN REACH.
--- NOTE | 2019-07-06 22:03 | NUR ---
ANSWERED CALL LIGHT. PATIENT JUST WANTED ANOTHER PILLOW. NO OTHER NEEDS AT THIS TIME.
--- NOTE | 2019-07-06 22:28 | NUR ---
PT RESTING IN BED, EYES OPEN. APPEARS COMFORTABLE, NO DISTRESS NOTED. CALL LIGHT IN REACH.
--- NOTE | 2019-07-06 22:47 | NUR ---
CALL LIGHT ANSWERED. PATIENT ASKED FOR ICE PACK. PROVIDED.
--- NOTE | 2019-07-07 01:41 | NUR ---
PT RESTING IN BED, EYES CLOSED. RR WNL AND EVEN. NO DISTRESS NOTED. CALL LIGHT IN REACH.
--- NOTE | 2019-07-07 01:50 | NUR ---
10 MG PRN OXYCODONE ADMINISTERED FOR 8/10 PAIN IN BACK. PT REFUSES COMPRESSION SLEEVE AND BRADY HOSE. NO ADDITIOANL NEEDS, CALL LIGHT IN REACH.
--- NOTE | 2019-07-07 03:31 | NUR ---
PT RESTING IN BED, REQUESTING TO GO TO THE BATHROOM. DRAPERY COUNSELOR SINTA IN ROOM, NO FURTHER NEEDS, CALL LIGHT IN REACH.
--- NOTE | 2019-07-07 03:47 | NUR ---
1PA TO BATHROOM AND BACK TO BED USING WALKER. BED LINEN CHANGED. GOWN CHANGED.
--- NOTE | 2019-07-07 07:33 | NUR ---
PT IN BED, APPEARS TO BE SLEEPING, RESP EVEN AND NON LABORED. NO DISTRESS NOTED. PERSONAL SUPPLIES AND CALL LIGHT WITHIN REACH.
--- NOTE | 2019-07-07 08:24 | NUR ---
Admin oxycodone 10mg po for reports of 8/10 back pain.
--- NOTE | 2019-07-07 08:28 | NUR ---
PORT FLUSH ORDERED. THIS RN CALLED TO ASSIST WITH PORT FLUSH AFTER FAILED ATTEMPTES YESTERDAY. PORT ACCESSED PER PROTOCOL. NO BLOOD RETURN NOTED. DRESSING APPLIED. PT REPSISITONED TO BACK AND LEFT SIDE. BRISK BLOOD RETURN NOTED. PORT FLUSHED AND HEPARIN LOCKED PER PROTOCOL. PORT DEACCESSED PER POROTOCOL. BANDAID DECLINED. PT BACK TO SITTING POSITION. PT STATES SHE IS COMFORTABLE AT THIS TIME. NO ADDITIONAL REQUESTS OR COMPLAINTS. CALL LIGHT WITHIN REACH. PTS RN AT BEDSIDE.
--- NOTE | 2019-07-07 08:50 | NUR ---
PATIENT UP TO CHAIR INDEPENDENT WITH FWW AND GATE BELT. BREAKFAST SET UP WITH FRESH ICE WATER. LINENS CHANGED. PATIENT REFUSED SHOWER DUE TO HAVING ONE YESTERDAY BUT AGREED TO A SPONGE BATH. CALL LIGHT IN REACH. NO OTHER NEEDS AT THIS TIME.
--- NOTE | 2019-07-07 14:41 | NUR ---
PT MENTIONED THAT SHE REALLY NEEDED TO REST. EXTENDED A BLESSING, AND WILL FOLLOW NEEDED
--- NOTE | 2019-07-07 16:00 | NUR ---
PT UP TO BATHROOM FROM RECLINER WITH ONE PERSON ASSIST AND FWW. PT TOLERATED ACTIVITY WELL VOIDED AND HAD BM, THEN BACK TO BED
--- NOTE | 2019-07-07 16:10 | NUR ---
ADMIN OXYCODONE 10MG PO FOR REPORTS OF 8/10 BACK PAIN.
--- NOTE | 2019-07-07 18:35 | NUR ---
PATIENT IN BED WATCHING TV. FRESH WATER GIVEN. CALL LIGHT IN REACH. NO FURTHER NEEDS AT THIS TIME.
--- NOTE | 2019-07-07 19:57 | NUR ---
RECEIVED REPORT FROM DAY SHIFT RN. PATIENT IS RESTING IN BED WATCHING TV. PATIENT DENIES ANY NEEDS. CALL LIGHT IN REACH.
--- NOTE | 2019-07-07 21:21 | NUR ---
1 PA TO THE BATHROOM AND BACK TO BED. V/S AND I&O TAKEN AND CHARTED. CALL LIGHT IN REACH. PRIMARY RN IN THE ROOM.
--- NOTE | 2019-07-07 21:30 | NUR ---
PATIENT ASSESEMENT COMPLETED. PATIENT IS RESTING IN BED. PATIENTS VITALS TAKEN AND RECORDED BY LINDEN DUFF. PATIENT OM CARE COMPLETED. PATIENTS EVENING MEDICATIONS GIVEN PER ORDER. PATIENT RATES PAIN AT 5/10 IN HER BACK AND HIPS. PATIENT GIVEN PRN PAIN MEDICATION PER ORDER. PATIENT ALSO COMPLAINS OF SPASMS. PATIENT GIVEN PRN MEDICATION PER ORDER. PATIENT GIVEN FRESH ICE WATER. PATIENT CONTINUES TO REFUSE SCDS AND TEDHOSE. PATIENT DENIES ANY FURTHER NEEDS CALL LIGHT IN REACH.
--- NOTE | 2019-07-07 23:20 | NUR ---
PATIENT IS RESTING IN BED. PATIENT DENIES ANY NEEDS. CALL LIGHT IN REACH.
--- NOTE | 2019-07-07 23:29 | NUR ---
CALL LIGHT ANSWERED. PATIENT WANTED HER PILLOWS. PATIENT REQUESTED FOR CRACKERS. BOTH GIVEN.
--- NOTE | 2019-07-08 01:05 | NUR ---
PATIENT IS RESTING IN BED WITH EYES CLOSED, RR 17. CALL LIGHT IN REACH.
--- NOTE | 2019-07-08 03:00 | NUR ---
PATIENT CALLED AND REQUESTED PAIN MEDICATION. PATIENT GIVEN PRN PAIN MEDICATION. PATIENTS WATER REFILLED. PATIENT DENIES ANY FURTHER NEEDS. CALL LIGHT IN REACH.
--- NOTE | 2019-07-08 04:46 | NUR ---
PATIENT RESTED WELL THROUGHOUT THE SHIFT. PATIENT IS ON A REGULAR DIET, TOLERATING WELL, AND NO NAUSEA NOTED. PATIENT IS ON SWING BED STATUS. PATIENT IS WORKING WITH PT/OT. PATIENT IS ON RA. PATIENT HAS BACK PRECAUTIONS DUE TO RECENT SURGERY. PATIENT IS A 1PA W/FWW. PATIENT IS RIGHT ARM RESTRICTED. PATIENT IS AAOX3 AND USES CALL LIGHT APPROPRIATELY. PATIENT GIVEN PRN MEDICATION FOR PAIN AND SPASMS IN HER BACK AND RIGHT HIP/LEG.
--- NOTE | 2019-07-08 07:05 | NUR ---
RECIEVED BEDSIDE REPORT FROM NIRU SYKES. PT SITTING UP IN RECLINER. PERSONAL SUPPLIES AND CALL LIGHT IN REACH.
--- NOTE | 2019-07-08 09:36 | NUR ---
PT REPORTED 7/10 BACK PAIN AFTER PHYSICAL THERAPY, GAVE PT OXYCODONE 10 MG PO PRN. PT NOW SITTING UP IN RECLINER. PERSONAL SUPPLIES AND CALL LIGHT IN REACH.
--- NOTE | 2019-07-08 10:39 | NUR ---
PT WORKING WITH OCCUPATIONAL THERAPY, USING TOOL TO ASSIST HER IN GETTING HER PANTS UP. PT GIVEN SAH IPAD FOR ENTERTAINMENT. PT WISHED TO PLAY Quote Roller, SO GAME DOWNLOADED FOR PT TO PLAY.
--- NOTE | 2019-07-08 11:37 | NUR ---
CONNECTED WITH PT SHE WAS AMBULATING IN FRAZIER WITH Antelmo JULIAN. SHE WAS WORKING HARD, WINDED AND NEEDED TO SIT DOWN-BUT WITH A SMILE. ALSO SAID PATRICIA SHE RETURNED TO HER RM. WILL FOLLOW NEEDED
--- NOTE | 2019-07-08 11:41 | NUR ---
PT REQUESTED PRN FLEXARIL, FLEXARIL 10 MG PO PRN GIVEN FOR C/O 5/10 BACK PAIN.
--- NOTE | 2019-07-08 13:31 | NUR ---
PT WAS SITTING UP IN RECLINER, TRANSFERED FROM RECLINER TO BED, UP FROM RECLINER USING FWW INDEPENDANTLY, AND AMBULATED TO BED INDEPENDANTLY, BUT PT DID REQUIRE ASSISTANCE GETTING LEGS UP ONTO THE BED. PT C/O 04/07 BACK PAIN. GAVE OXYCODONE 10 MG PO PRN. PERSONAL SUPPLIES AND CALL LIGHT IN REACH.
--- NOTE | 2019-07-08 15:09 | NUR ---
PT IN BED, REPORTED THAT SHE WORKED WITH KATHIA, PHYSICAL THERAPIST THIS AFTERNOON. PERSONAL SUPPLIES AND CALL LIGHT IN REACH. PT DENIED NEEDS AT THIS TIME.
--- NOTE | 2019-07-08 17:18 | NUR ---
PT WORKED WITH OCCUPATIONAL THERAPY AND PHYSICAL THERAPY THIS AM, BUT PER KATHIA PHYSICAL THEAPIST NOTES, PT REFUSED AFTERNOON SESSION OF PHYSICAL THERAPY. PT UP TO RECLINER MUCH OF SHIFT, WITH BREAKS TO STAND, MOVE AROUND Q 45 MINUTES AND PER HER REQUEST. PT IN BED AT THIS TIME. PT REQUIRED FLEXARIL PRN FOR BACK PAIN, GIVEN AT 1139. PT ALSO REQUIRED OXYCODONE 10 MG PO PRN X 2, LAST DOSE GIVEN AT 1330. PT UP WITH STANDBY TO 1 PERSON ASSIST. ENCOURAGED PT TO INDEPENDANTLY TRANSFER SELF, WITH STAFF SUPERVISION, BUT PT DID REQUIRE ASSISTANCE GETTING LEGS UP ONTO BED WHEN GETTING INTO BED. PT TOLERATING FOOD AND FLUID INTAKE WELL.
--- NOTE | 2019-07-08 18:22 | NUR ---
PATIENT UP TO BATHROOM FROM BED TO VOID AND BRUSH TEETH THEN BACK TO CHAIR. CALL BUTTON IN REACH FRESH ICE WATER GIVEN. NO OTHER NEEDS AT THIS TIME.
--- NOTE | 2019-07-08 19:10 | NUR ---
IN ROOM FOR REPORT, PT IS AWAKE IN CHAIR. ASSISSTED HER SBA WITH WALKER BACK TO BED. SHE DENIES NEEDS AT THIS TIME. CALL LIGHT IS WITHIN REACH.
--- NOTE | 2019-07-08 20:10 | NUR ---
ASSESSED PT AND ADMINISTERED MEDICATIONS. ADMINISTERED FLEXERIL AND OXYCODONE FOR PAIN 8/10 IN R LEG AND BACK. PT WILL CALL LATER TO USE THE RESTROOM BEFORE SHE GOES TO SLEEP. VS TAKEN AND WNL. PT DENIES SLEEVE AND AES. SHE DENIES FURTHER NEEDS AT THIS TIME. CALL LIGHT IS WITHIN REACH.
--- NOTE | 2019-07-08 22:41 | NUR ---
PT IS RESTING WITH EYES CLOSED, RR IS EVEN AND NONLABORED. CALL LIGHT IS WITHIN REACH.
--- NOTE | 2019-07-09 00:15 | NUR ---
PT CALLED TO USE RESTROOM. ASSISTED PT 1PA WITH FWW TO RESTROOM AND BACK TO BED. SHE DENIES FURTHER NEEDS AT THIS TIME. CALL LIGHT IS WITHIN REACH.
--- NOTE | 2019-07-09 02:14 | NUR ---
ANSWERED CALL LIGHT. PATIENT C/O RIGHT LEG CRAMPING AND WANTING WARM PACK. MADE WARM PACK AND INSTRUCTED TO TAKE IT OFF IF IT FEELS TOO HOT TO AVOID SKIN BURN. PATIENT UNDERSTOOD.
--- NOTE | 2019-07-09 03:08 | NUR ---
PT IS RESTING WITH EYES CLOSED, RR IS EVEN AND NONLABORED. CALL LIGHT IS WITHIN REACH.
--- NOTE | 2019-07-09 05:29 | NUR ---
PT IS RESTING WITH EYES CLOSED, RESPIRATIONS ARE EVEN AND NONLABORED. CALL LIGHT IS WITHIN REACH.
--- NOTE | 2019-07-09 05:30 | NUR ---
PT AMBULATES 1PA WITH FWW. SHE IS ON A REGULAR DIET. SHE HAS NO IV SITE. R ARM LYMPEDEMA, PT TO WEAR SLEEVE ON IT. SHE WORKS WITH PT AND OT. SHE HAS OXYCODONE FOR PAIN AND FLEXERIL FOR SPASMS. RIGHT RESTRICTED EXTREMITY.
--- NOTE | 2019-07-09 05:43 | NUR ---
PT CALLED FOR NEW WARMPACK AND FLEXERIL. SHE DENIES FURTHER NEEDS AT THIS TIME.CALL LIGHT IS WITHIN REACH.
--- NOTE | 2019-07-09 06:35 | NUR ---
SBA TO THE BATHROOM USING WALKER AND BACK TO BED. PATIENT REQUESTED FOR 2 WARM PACKS. PROVIDED.
--- NOTE | 2019-07-09 07:30 | NUR ---
PATIENT RESTING IN BED. CALL LIGHT WITHIN REACH. NO OTHER NEEDS AT THIS TIME
--- NOTE | 2019-07-09 09:00 | NUR ---
PT IS IN GOOD SPIRITS, ATE 100% OF BREAKFAST, REQUESTED PAIN MEDICATION FOR BACK ACHING, OXYCODONE 5MG GIVEN, REPOSITIONED WITH PILLOWS. EAGER TO WORK WITH THERAPY THIS MORNING. DENIES FURTHER NEEDS.
--- NOTE | 2019-07-09 09:58 | NUR ---
PATIENT USING BATHROOM. PATIENT USES A WALKER. PATIENT DID ORAL CARE. PATIENT BACKS TO CHAIR. ONE PERSON ASSISTING. I&O DONE. VITAL SIGNS DONE BY RN. CALL LIGHT WITHIN REACH. NO OTHER NEEDS AT THIS TIME
--- NOTE | 2019-07-09 11:39 | NUR ---
PATIENT SITTING UP IN CHAIR. PATIENT GOES TO THE BATHROOM TO TAKE A SHOWER. PATIENT USES WALKER. PATIENT TAKES A SHOWER. ONE PERSON ASSISTING. PATIENT USING A CLEAN GOWN. PATIENT BACKS TO CHAIR. LINENS CHANGED. WARM BLANKET PROVIDED. CALL LIGHT WITHIN REACH. NO OTHER NEEDS AT THIS TIME
--- NOTE | 2019-07-09 13:06 | NUR ---
PT OUT ON ONE OF HER DAILY WALKS IN THE FRAZIER WITH Antelmo BAE. SHE APPEARS TO BE WORKING HARD, GETS WINDED AND TRIES AGAIN FOLLOWING A BRIEF REST. PT SEEMS TO APPRECIATE ENCOURAGEMENT, WILL FOLLOW NEEDED
--- NOTE | 2019-07-09 13:33 | NUR ---
PATIENT RESTING IN BED. I&O DONE. ICE WATER GIVEN. CALL LIGHT WITHIN REACH. NO OTHER NEEDS AT THIS TIME
--- NOTE | 2019-07-09 15:03 | NUR ---
PT REPORTS PAIN MUCH IMPROVED SINCE TAKING OXYCODONE. WALKING IN HALLWAY WITH PT AT THIS TIME.
--- NOTE | 2019-07-09 16:00 | NUR ---
PT NOW RESTING ON BED, ASKED IF SHE COULD HAVE ANOTHER PAIN MEDICATION SHE IS HAVING BACK SPASM AND CRAMP IN R THIGH. OXYCODONE 5MG GIVEN, REPOSITIONED AND FLEXERIL FOR SPAMS. CALL LIGHT IN EASY REACH.
--- NOTE | 2019-07-09 17:04 | NUR ---
PT IS WATCHING TV PROGRAM AND STATES SHE IS COMFORTABLE NOW. DENIES FURTHER NEEDS.
--- NOTE | 2019-07-09 17:59 | NUR ---
PATIENT SITTING UP IN BED WATCHING TV. I&O DONE. CALL LIGHT WITHIN REACH. NO OTHER NEEDS AT THIS TIME
--- NOTE | 2019-07-09 18:05 | NUR ---
PT HAS HAD A GOOD DAY, WALKED IN HALLWAY WITH PT AND MOTIVATED TO WORK WITH OT, GOOD PAIN CONTROLL WITH OXYCODONE AND FLEXERIL FOR MUSCLE SPASM AFTER WALKING WITH PT. PT FEELS SHE IS MAKING GOOD PROGRESS.
--- NOTE | 2019-07-09 19:00 | NUR ---
SHIFT REPORT RECEIVED FROM DAYSHIFT RN AT BEDSIDE. PT AWAKE AND RESTING IN BED, APPEARS COMFORTABLE. VERBALIZES NO NEEDS AT THIS TIME, ON RA. CALL LIGHT IN REACH.
--- NOTE | 2019-07-09 20:40 | NUR ---
ASSESSMENT COMPLETE, PT A/OX4. VSS. INCISION OPEN TO AIR, WELL APPROXIMATED. REPORTS 8-9/10 PAIN. SCHEDULED TYLENOL AND PRN OXYCODONE ADMINSITERED. SEE EMAR FOR ADDITIONAL MEDS. PT APPEARS IN GOOD SPIRITS, DENIES ADDITIONAL NEEDS. CALL LIGHT IN REACH. PT REFUSES BRADY HOSE AND ARM SLEEVE AT THIS TIME.
--- NOTE | 2019-07-10 01:19 | NUR ---
PRN FLEXERIL ADMINISTERED FOR BACK SPASMS PER PT REQUEST. NO ADDITIONAL NEEDS, CALL LIGHT IN REACH.
--- NOTE | 2019-07-10 04:27 | NUR ---
PT REPORTING 9/10 PAIN, PRN OXYCODONE ADMINISTERED PER PT REQUEST. PT INTERACTING WELL WITH NURSING STAFF. NO ADDITIONAL NEEDS, CALL LIGHT IN REACH.
--- NOTE | 2019-07-10 06:26 | NUR ---
HELPED PT GET REPOSITIONED IN BED TO HER COMFORT. FRESH ICE WATER GIVEN. BEDSIDE TABLE AND CALL LIGHT IN REACH.
--- NOTE | 2019-07-10 07:30 | NUR ---
PATIENT AMBULATED TO TOILET AND VOIDED. AMBULATED TO CHAIR WITH ONE PERSON SBA. TOLERATED WELL WITH MINIMAL ASSIST. PERSONAL BELONGINGS AT PATIENT SIDE. DENIES FURTHER NEEDS AT THIS TIME, CALL LIGHT WITHIN REACH.
--- NOTE | 2019-07-10 07:47 | NUR ---
PATIENT IS SLEEPING IN BED, AWAKES EASILY FOR REPORT. STATES SHE "SLEPT WELL AND THE PAIN MEDICATION IS HELPING SINCE PT YESTERDAY." PATIENT AMBULATED TO TOILET WITH STANDBY GUARD, THEN AMBULATED TO THE CHAIR. DENIES ANY FURTHER NEEDS AT THIS TIME, CALL LIGHT WITHIN REACH.
--- NOTE | 2019-07-10 09:45 | NUR ---
PT IN ROOM WITH PATIENT, AMBULATING HALLWAYS. PATIENT STATES PAIN OF 9/10, PAIN MEDICATION PROVIDED.
--- NOTE | 2019-07-10 12:08 | NUR ---
PATIENT AMBULATED TO CHAIR FOR LUNCH. NEWSPAPER DELIVERED. PATIENT DENIES ANY FURTHER NEEDS AT THIS TIME. CALL LIGHT WITHIN REACH.
--- NOTE | 2019-07-10 13:24 | NUR ---
WENT WITH PT SHE AMBULATED IN HALLWAYS USING WW WITH Antelmo JULIAN. I PUSHED IN WC, AND VISITED WITH PT SHE RESTED. PT IS WORKING HARD, REACHING GOALS THAT HAVE BEEN SET FOR HER. ELIEL VERY ENCOURAGING AND SUPPORTIVE.I EXTENDED A BLESSING, WILL FOLLOW NEEDED
--- NOTE | 2019-07-10 16:33 | NUR ---
PT UP TO WORK WITH PHYSICAL THERAPY. TO BATHROOM FOR BM AND VOID. THIS NURSE AND OCCUPATIONAL THERAPY IN TO ASSIST PT WITH SHOWER. PT TOLERATED WELL. UP TO CHAIR WITH PERSONAL ITEMS AND CALL LIGHT WITHIN REACH. PT READING NEWSPAPER AT THIS TIME. DENIES FURTHER NEEDS.
--- NOTE | 2019-07-10 18:23 | NUR ---
PATIENT SITTING UP IN BED WATCHING TV. STATES PAIN OF 7/10 AND IS GIVEN 10 MG OF OXYCODONE. PATIENT DENIES ANY FURTHER NEEDS AT THIS TIME, CALL LIGHT WITHIN REACH.
--- NOTE | 2019-07-10 18:44 | NUR ---
PT HAD GOOD DAY. UP TO CHAIR WITH MEALS. PAIN WELL CONTROLLED WITH PRN OXYCODONE. RIGHT ARM SLEEVE IN PLACE FOR HALF THIS SHIFT. PT WITH ASSIT IN SHOWER TODAY. WORKED WELL WITH PHYSICAL AND OCCUPATIONAL THERAPY.
--- NOTE | 2019-07-10 20:14 | NUR ---
Charge nurse rounding note:, Awake, watching tv, no c/o pain, continues on spine precautions and swing bed/transitional care status. Fluids and call light at bedside
--- NOTE | 2019-07-10 20:42 | NUR ---
Charge nurse rounding note: Awake, watching tv, R arm restrictins from lymphedema, not wearing arm compresion stocking, No requests, no c/o pain. IS at bedside, call lihgt and fluids within hands reach
--- NOTE | 2019-07-10 20:45 | NUR ---
PATIENT RESTING QUITLEY IN BED WATCHING TV, ICE WATER FILLED. NO OTHER NEEDS MEDS AND ASSESSMENT DONE.
--- NOTE | 2019-07-10 22:42 | NUR ---
PATIENT UP TO THE RESTROOM WITH 1PSBA AND FWW AND VOIDED 675. 6/10 PAIN NOW IN HER LEG AND 2 OXYCODONE GIVEN.
--- NOTE | 2019-07-11 00:32 | NUR ---
PATIENT FEELING A LITTLE INCOMFORTABLE AND NIRU JULIAN PUT HER LEGS UP ON PILLOWS AND PATIENT WAS FELIGN BETTER WITH THIS INTERVENTION.
--- NOTE | 2019-07-11 01:13 | NUR ---
PATIENT RESTING QUIETLY SUPINE, EYES CLOSED, RESPIRATIONS REGULAR AND EVEN, CALL LIGHT IN REACH.
--- NOTE | 2019-07-11 03:27 | NUR ---
PATIENT CALLED AND SAID HER ROOOM WAS TO WARM AND ASKED THAT THE TEMPERATURE BE TURNED DOWN WHICH WAS DONE. AND SHE WAS ALSO MEDICATED WITH TYLENOL BY THE CHARGE NURSE PER NIRU CANNON A SHORT TIME AGO FOR HER LEG PAIN.
--- NOTE | 2019-07-11 05:06 | NUR ---
PATIENT RESTED PRETTY WELL AFTER EVENING MED PASS AND 10MG OF OXYCODONE FOR HER LEG PAIN. PATIENT GOT NEW ICE WATER AND HAS BEEN DOING WELL WITH HER WALKER GOING TO THE RESTROOM. RESTING QUIETLY WITH REGULAR RESPERATIONS AND EYES CLOSED AT THIS TIME.
--- NOTE | 2019-07-11 07:30 | NUR ---
PATIENT RESTING IN BED. CALL LIGHT WITHIN REACH. NO OTHER NEEDS AT THIS TIME
--- NOTE | 2019-07-11 08:00 | NUR ---
PATIENT SITTING UP IN BED WATCHING TV. STATES SHE "SLEPT OKAY." PLAN OF CARE FOR THE DAY IS DISCUSSED, NO FURTHER NEEDS AT THIS TIME. CALL LIGHT WITHIN REACH.
--- NOTE | 2019-07-11 08:08 | NUR ---
PATIENT SITTING UP IN BED AND TAKING HER BREAKFAST. PATIENT REFUSED TO TAKE A SHOWER TODAY. CALL LIGHT WITHIN REACH. NO OTHER NEEDS AT THIS TIME
--- NOTE | 2019-07-11 08:40 | NUR ---
SBA TO CHAIR. PT TOLERATED WELL. CALL LIGHT AND PERSONAL ITEMS WITHIN REACH.
--- NOTE | 2019-07-11 09:30 | NUR ---
PATIENT SITTING UP IN BED WATCHING TV. ASSESSMENT COMPLETE. COMPRESSION SLEEVE ON RIGHT ARM FOR LYMPHEDEMA. CRACKLES AUSCULTATED IN LOWER BASES, PATIENT ENCOURAGED TO USE INCENTIVE SPIROMETER. WILL MONITOR. OT IN ROOM WITH PATIENT DISCUSSING PLAN OF CARE. PATIENT DENIES ANY FURTHER NEEDS AT THIS TIME, CALL LIGHT WITHIN REACH.
--- NOTE | 2019-07-11 09:44 | NUR ---
PATIENT SITTING UP IN CHAIR. I&O DONE. VITAL SIGNS DONE BY RN. CALL LIGHT WITHIN REACH. NO OTHER NEEDS AT THIS TIME
--- NOTE | 2019-07-11 10:34 | NUR ---
CALL LIGHT ANSWERED. PATIENT USING BATHROOM. PATIENT USES WALKER. PATIENT BACKS TO CHAIR. ONE PERSON ASSISTING. CALL LIGHT WITHIN REACH. NO OTHER NEEDS AT THIS TIME
--- NOTE | 2019-07-11 11:30 | NUR ---
SPOKE WITH PATIENT IN ROOM. PATIENT FEELS SHE IS SLOWLY IMPROVING EVERY DAY. DISCUSSED WITH HER TO MAKE SURE SHE UNDERSTANDS WHAT IS NEEDED ONCE HOME TO MAINTAIN HER HEALTH. MEDICATIONS, SIDE EFFECTS AND FOLLOW UP PLAN. PATIENT FEELS VERY CERTAIN SHE WILL HAVE ALL THAT UNDERSTOOD. NO CONCERNS AT THIS TIME. WILL CONTINUE TO FOLLOW.
--- NOTE | 2019-07-11 12:00 | NUR ---
PATIENT STATES PAIN OF 7/10, 10 MG OF NORCO ADMINISTERED. LUNCH DELIVERED, PATIENT AMBULATED WITH ONE PERSON SBA WITH FWW TO CHAIR. DENIES ANY FURTHER NEEDS AT THIS TIME, CALL LIGHT WITHIN REACH.
--- NOTE | 2019-07-11 14:40 | NUR ---
PT REQUESTING TO SKIP P.T. THIS AFTERNOON, DISCUSSED WITH PT THAT P.T. IS PART OF SWING BED THERAPY AND TO TRY TO WORK WITH THERAPIST MUCH TOLERATED, PT AGREEABLE. PT GIVEN SCHEDULED TYLENOL AND GABAPENTIN AND PRN FLEXIRIL BEFORE THERAPY. PT DENIES OTHER NEEDS AT THIS TIME.
--- NOTE | 2019-07-11 17:24 | NUR ---
PT REQUESTING PAIN MEDICATION, GIVEN 10 MG OXYCODONE FOR PAIN 05/07 TO BACK. PT EATING DINNER. PT DENIES OTHER NEEDS AT THIS TIME.
--- NOTE | 2019-07-11 20:27 | NUR ---
cooperativw with assessment, c/o hip, r groin area, received scheduled Tylenol, moves self in bed. IS at bedside,
--- NOTE | 2019-07-12 00:15 | NUR ---
RESTING, NO DISTRESS, ON ROOM AIR, CALL LIGHT AT HANDS REACH
--- NOTE | 2019-07-12 01:09 | NUR ---
medicated with Flexeril 10mg po c/o pain/back/R leg muscle spasms . Up to br, voided clear yellow urine. Low back old incision with steristrips inplace, healed. Back to bed. 1PA and FWW, tolerated well. Back to bed, R arm compression sleeve in place. No other requests. Call liht and fluids at bedside
--- NOTE | 2019-07-12 02:51 | NUR ---
pt c/o 08/07 back pain. Medicated with 2 Oxycodone tabs po, tolerating fluids well, call light at bedside.
--- NOTE | 2019-07-12 04:48 | NUR ---
Pt continues on swing bed/transitional care status. Has wore R arm Lymphedema Compression stocking all night. Low back post op Laminectomy incision healed, steristrips in place. Has c/o of back pain, medicated with 2 Oxycodone tabs, and of back and r groing to toes pain, was medicated with Flexeril with good pain relief. Has slept most of this shift. Turns self in bed. Tolerating fluids well, voiding QS. Up with 1PA/FWW, tolerates well. Alert and oriented, on room air. Following POC.
--- NOTE | 2019-07-12 07:30 | NUR ---
PT SBA WITH FWW TO AMBULATE TO BATHROOM, VOIDED, PT ASSISTED TO CHAIR. CALL LIGHT WITHIN REACH. PT DENIES OTHER NEEDS AT THIS TIME.
--- NOTE | 2019-07-12 08:50 | NUR ---
PT ALERT/ORIENTED. PT ON ROOM AIR, LUNG SOUNDS CLEAR. PT RATING PAIN 8/10 TO BACK, GIVEN TYLENOL, GABAPENTIN AND FLEXIRIL. PT TOLERATING DIET, DENIES NAUSEA, GOOD APPETITE. PT WITH CHRONIC NUMBNESS TO RIGHT ARM AND BLE, AT BASLINE. PT WERAING LYMPHEDEMA WRAP TO RIGHT ARM. WITHOUT IV ACCESS. DISCUSSED PLAN OF CARE FOR THE DAY, PT AGREEABLE TO TAKE SHOWER AFTER WORKING WITH P.T. MORNING MEDICATIONS GIVEN PER DEC. PT DENIES OTHER NEEDS AT THIS TIME.
--- NOTE | 2019-07-12 11:00 | NUR ---
PT ASSISTED WITH SHOWER, LINENS AND GOWN CHANGED. PT SITTING IN CHAIR. PT DENIES OTHER NEEDS AT THIS TIME.
--- NOTE | 2019-07-12 12:25 | NUR ---
PT RATING PAIN 7/10 TO BACK AND RIGHT LEG, GIVEN 10 MG OXYCODONE PER ORDER. PT RESTING IN BED, DENIES OTHER NEEDS AT THIS TIME.
--- NOTE | 2019-07-12 17:50 | NUR ---
PT HAD UNEVENTFUL DAY. PT ON ROOM AIR, LUNG SOUNDS CLEAR. [facility] TOOK SHOWER THIS AM. PT TOLERATING DIET, GOOD ORAL INTAKE. PT WITH PAIN AND BACK SPASMS, CONTROLLED WITH OXYCODONE, TYLENOL, GABAPENTIN AND FLEXIRIL. WITHOUT IV ACCESS. SPINAL PRECAUTIONS, AMBULATES WITH SBA WITH FWW. VOIDING QS, HAD BM TODAY. PLAN FOR OR DC ON SUNDAY OR SUNDAY.
--- NOTE | 2019-07-12 18:49 | NUR ---
PT ASSISTED TO WALK IN FRAZIER, SBA WITH WHEEL CHAIR FOLLOW, PT ABLE TO AMBULATE 1 LAP AROUND NURSING FLOOR WITH 2 REST BREAKS. PT NOW RESTING IN BED. PT GIVEN 10 MG OXYCODONE FOR PAIN 6-05/07. PT DENIES OTHER NEEDS AT THIS TIME.
--- NOTE | 2019-07-12 19:00 | NUR ---
REPORT RECEIVED FROM OFFGOING RNTALITA.
--- NOTE | 2019-07-12 21:17 | NUR ---
PT ASSESSMENT COMPLETE. PT RESTING IN BED. PT RATES PAIN 9/10 TO BACK, STATES THAT SHE IS HAVING SPASMS. PRN FLEXIRIL ADMINISTERED WELL SCHEDULED MEDICATIONS. PT DENIES SOB OR NAUSEA AT THIS TIME. LYMPHEDEMA PRESENT TO BERNADETTE GRADY WITH 1 + PITTING EDEMA. PT STATES SHE WORE COMPRESSION SLEEVE TO RUE MOST OF THE DAY, DECLINES TO WEAR AT THIS TIME. PT REPORTS NUMBNESS AND TINGLING TO MIGUEL A AND BERNADETTE'S. INCICSION TO LOW BACK DISTRICT MEDICAL EXAMINER, DRY AND CRUSTY, WITH NO DRAINAGE NOTED. ICE WATER REFILLED. PT DENIES FURTHER NEEDS AT THIS TIME. CALL LIGHT IN REACH.
--- NOTE | 2019-07-12 23:37 | NUR ---
pt up to use the bathroom and back to bed with 1 pa and fww. pt tolerated well. pt rates pain 6-7/10, states this is the norm and is tolerable. pt talks with expert medical writer for some time about the events leading up to her back surgery. ice water refilled. pt denies further needs. call light in reach.
--- NOTE | 2019-07-13 01:31 | NUR ---
PT UTILIZES CALL LIGHT, REPORTS PAIN, 10/10 "SPASMS" TO LOW BACK, R GROIN, AND R THIGH. PRN PAIN MEDCIATION ADMINISTERED. WARM BLANKET PROVIDED. PT ASSISTED TO REPOSITION. PT DENIES FURTHER NEEDS, CALL LIGHT IN REACH.
--- NOTE | 2019-07-13 02:54 | NUR ---
PT RESTING IN BED WITH EYES CLOSED. RESPIRATIONS ARE EVEN AND UNLABORED. PT DOES NOT WAKE WHEN CITY DISPATCHER OPENDS THE DOOR. APPEARS TO BE SLEEPING. CALL LIGHT IN REACH.
--- NOTE | 2019-07-13 04:30 | NUR ---
PT UTILIZES CALL LIGHT, REQUESTS CRACKERS, PROVIDED. PT DENIES FURTHER NEEDS. CALL LIGHT IN REACH.
--- NOTE | 2019-07-13 08:25 | NUR ---
PATIENT AMBULATES TO CHAIR FOR BREAKFAST WITH FWW AND SBA. PATIENT STATES "I DIDN'T SLEEP WELL." REPORTS A PAIN OF 8/10 AND PRN PAIN MEDICATION IS PROVIDED. PATIENT SITTING IN CHAIR WATCHING TV. DENIES ANY FURTHER NEEDS AT THIS TIME, CALL LIGHT WITHIN REACH.
--- NOTE | 2019-07-13 09:09 | NUR ---
pt reports pain 9/10 radiating across her mid back. 10 mg po oxycodone prn administered at this time.
--- NOTE | 2019-07-13 09:40 | NUR ---
PATIENT AMBULATING HALLS WITH PT. IMPROVED STRENGTH AND STEADY GAIT.
--- NOTE | 2019-07-13 14:17 | NUR ---
PT IN BED, AWAKE AND ALERT. STATES BRADY MARIA IS HURTING HER RIGHT LEG, BUT SHE WILL KEEP IT ON LONG SHE CAN. SHE WILL LET ME KNOW WHEN SHE CAN NO LONGER TOLERATE IT. STATES OXY WAS SEMI-EFFECTIVE. NO NEEDS AT THIS TIME.
--- NOTE | 2019-07-13 18:33 | NUR ---
PATIENT AMBULATED TO SHOWER WITH FWW AND SBA. PATIENT AMBULATED BACK TO BED, WATCHING TV. DENIES FURTHER NEEDS AT THIS TIME, CALL LIGHT WITHIN REACH.
--- NOTE | 2019-07-13 19:15 | NUR ---
REPORT RECEIVED FROM OFFGOING RN'S TAYLOR.
--- NOTE | 2019-07-13 21:00 | NUR ---
PT UTILIZES CALL LIGHT, REQUESTS PRN PAIN MEDICATION. 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 REPORTS ALSO CONTINUES TO HAVE SPASMS IN LOW BACK, R THIGH, AND R GROIN. PRN FLEXIRIL ADMINISTERED WITH SCHEDULED MEDICATIONS. PT ASSESSMENT COMPLETE. LYMPHEDEMA PRESENT TO R ARM, PT TAKING A BREAK FROM HER COMPRESSION SLEEVE AT THIS TIME. BLE EDEMA TRACE TO 1+, PT DECLINES TO WEAR TEDS AT THIS TIME. DRY FLAKING SKIN TO BLE'S, LOTION APPLIED PER PT REQUEST. INCISION TO LOW BACK DIANN, DRY SCABBING. ICE WATER REFILLED. ROOM TIDIED. PT TALKATIVE. DENIES FURTHER NEEDS AT THIS TIME. CALL LIGHT WITHIN REACH.
--- NOTE | 2019-07-13 23:03 | NUR ---
ANSWERED CALL LIGHT. SBA TO THE BATHROOM USING WALKER AND BACK TO BED. PATIENT ASKED FOR PAIN MEDS, PRIMARY RN NOTIFIED.
--- NOTE | 2019-07-13 23:44 | NUR ---
PT UTILIZES CALL LIGHT, REQUESTS PRN PAIN MEDICATION. PT RATES PAIN 8/10 TO LOW BACK, R GROIN, R THIGH, AND R FOOT. PRN OXYCODONE ADMINISTERED. ICE WATER REFILLED. PT DENIES FURTHER NEEDS AT THIS TIME. CALL LIGHT IN REACH.
--- NOTE | 2019-07-14 02:13 | NUR ---
PT RESTING IN BED WITH EYES CLOSED. RESPIRATIONS EVEN AND UNLABORED. PT SNORING AUDIBLY. CALL LIGHT IN REACH.
--- NOTE | 2019-07-14 05:37 | NUR ---
PT UTILIZES CALL LIGHT, REQUESTS TO USE THE BATHROOM. PT RATES PAIN 10/10 TO BACK, R LEG. PRN OXYCODONE ADMINISTERED. PT UP TO BATHROOM AND BACK TO BED WITH 1PA AND FWW. PT TOLERATED WELL. ICE WATER REFILLED. PT DENIES FURTHER NEEDS. CALL LIGHT IN REACH.
--- NOTE | 2019-07-14 05:41 | NUR ---
PT SLEPT WELL THIS SHIFT. OXYCODONE AND FLEXIRIL FOR BACK, R LEG PAIN/SPASMS. SPINAL PRECUATIONS. PT/OT. UO QS. NO IV ACCESS. 1 PA WITH SBA.
--- NOTE | 2019-07-14 07:34 | NUR ---
RECIEVED BEDSIDE REPORT FROM NIRU TINSLEY. PT AWAKE AND ALERT IN BED. SHE WOULD LIKE A CONSULT WITH CASE MANAGEMENT.
--- NOTE | 2019-07-14 08:30 | NUR ---
SPOKE WITH DR MANOLO PECK: NICOTINE PATCH VS LOZENGE AND PAIN CONTROL. HE WILL ADDRESS.
--- NOTE | 2019-07-14 09:40 | NUR ---
PT HAS BEEN UP TO CHAIR. HAS HAD SHOWER. CASE MANAGEMENT IN TO TALK TO PT.
--- NOTE | 2019-07-14 10:44 | NUR ---
SPOKE WITH PATIENT IN ROOM. DISCUSSED SHE MAY BE CLOSE TO DISCHARGE, POSSIBLY IN A FEW DAYS. SHE STATES SHE FEELS CONFIDENT IN RETURNING HOME AT DISCHARGE. SHE STATES SHE LIVES IN [place] WITH HER DAUGHTER LIVING ABOVE. HER DAUGHTER IS A PAID CAREGIVER FOR PATIENT BY THE [facility]. PATIENT STATES HER BINDER LAYER AT [facility] IS RADHA HURTADO. WE DISCUSSED LETTING RADHA KNOW SHE WILL BE DISCHARGED IN CASE THEY WANT TO REASSESS HER FOR NEED. SHE ASKED THAT I CONTACT THEM FOR HER. PT STATES SHE GETS AROUND 30 HOURS A WEEK (SHE THINKS) NOW. WE DISCUSSED THAT SHE MAY QUALIFY FOR HOME HEALTH TO COME IN AND CONTINUE THERAPY AT HOME, IF NOT, OUTPATIENT. SHE IS HOPING TO BE ABLE TO DO IT AT HOME SHE STILL GETS VERY TAXED BY ACTIVITY. WE DISCUSSED THAT SHE IS USING A WALKER HERE, SHE STATES SHE HAS ONE AT HOME BUT IT IS A BORROW WALKER AND IS QUITE "RICKETY". DISCUSSED I WILL TALKE WITH DR HDEZ ABOUT A RX FOR A NEW ONE WE WANT TO MAKE SURE SHE HAS SAFE EQUIPMENT. WE DISCUSSED HAVING A MEETING WITH HER DAUGHTER AND STAFF REGARDING NEEDS ONCE HOME. SHE STATES HER DAUGHTER IS TESTIFYING IN COURT TODAY AND SHE WILL ASK HER ABOUT COMING IN TOMORROW. DISCUSSED I CAN CALL HER DAUGHTER, BUT SHE STATES THAT SHE WILL TALK WITH HER LATER ANYWAY AND THAT BECAUSE SHE IS IN COURT SHE ISN'T ANSWERING HER PHONE. WE DISCUSSED IF SHE HAS ANY CONCERNS FOR GOING HOME. SHE DENIES THIS. STATES "NO I FEEL MUCH MORE PREPARED NOW TO BE AT HOME". SHE FEELS HER DAUGHTER DOES A GOOD JOB HELPING HER. SHE DOES NOT HAVE STAIRS SHE NEEDS TO TAKE TO BE IN HER APARTMENT. SHE HAS TRANSPORTATION VIA HER DAUGHTER. WHILE IN THE ROOM THE RN BROUGHT THE PATIENT HER MORNING MEDS, SHE WAS ABLE TO IDENTIFY ALL MEDS AND KNEW WHAT THEY WERE FOR. SHE IS NOT WORRIED ABOUT TAKING ANY MEDICATIONS AT HOME. SHE HAS TAKEN A SHOWER WITH HELP OF THE NURSE OFFICE THIS MORNING AND IS ANTICIPATING PT AND OT IN SOON. NO FURTHER QUESTIONS AT THIS TIME. WILL CONTINUE TO FOLLOW.
--- NOTE | 2019-07-14 11:04 | NUR ---
CALLED [facility] [phone] FOR RADHA DOS SANTOS. SHE DOES NOT WORK ON MONDAYS. VOICEMAIL LEFT REGARDING PATIENT UPCOMING DISCHARGE WITH ASK FOR CALLBACK TOMORROW.
--- NOTE | 2019-07-14 11:22 | NUR ---
ADVISED DR KETTY FARRAR, CASE MANAGEMENT, NEEDS A WRITTEN RX FOR A WALKER FOR THIS PT. HE WILL WRITE A SCRIPT WHEN HE GETS A CHANCE.
--- NOTE | 2019-07-14 14:45 | NUR ---
PT SITTING IN CHAIR, SMILING AND LETTING ME KNOW THAT SHE IS STILL TRYING TO IMPROVE. ENCOURAGED HER TO CELEBRATE EACH LITTLE BREAKTHROUGH, SHE THANKED ME AND SAID SHE APPRECIATES THE VISIT. WILL CONTINUE TO FOLLOW NEEDED
--- NOTE | 2019-07-14 14:53 | NUR ---
FAXED RX FOR FWW/CLINICALS TO [facility] [phone]. FAX CONFIRMATION RECEIVED 07/14/19 216PM. CALLED AND SPOKE WITH STEFANY, THEY DO NOT HAVE A CRIB PAD MAKER FOR DELIVERY UNTIL LATER TODAY OR EARLY TOMORROW MORNING. EXPLAINED TOMORROW AN WOULD BE FINE. STAFF UPDATED.
--- NOTE | 2019-07-14 17:30 | NUR ---
SPOKE WITH PATIENT IN ROOM AFTER SHE ASKED STAFF TO CALL ME DOWN. PATIENT ASKING WHEN SHE IS GOING TO BE RELEASED. ASKED THAT SHE STAY UNTIL AT LEAST SUNDAY. STATES SHE IS SCARED SHE WILL BE SENT HOME TO EARLY. PATIENT TEARFUL. DISCUSSED THAT SHE IS STILL WORKING WITH THERAPY AND HER GOALS. DISCUSSED THAT AT THIS POINT WE DO NOT HAVE A DEFINATIVE DISCHARGE YET. DISCUSSED THAT SHE CONTINUE TO TALK WITH PT AND OT REGARDING HER CONCERNS AND WORRIES WHEN SHE IS WORKING WITH THEM SO NEW GOALS CAN PUT LOOKED AT. PATIENT STATES UNDERSTANDING. SAT WITH PATIENT APPROXIMATELY 3O MINUTES. PATIENT SEEMS MORE RELAXED. WILL CONTINUE TO FOLLOW.
--- NOTE | 2019-07-14 19:10 | NUR ---
CHARGE NURSE REPORT RECEIVED FROM MERISSA SAMAYOA RN. PT WITH NO NEEDS AT THIS TIME.
--- NOTE | 2019-07-14 21:20 | NUR ---
CALL LIGHT ANSWERED. 1 SBA TO THE BATHROOM AND BACK TO BED USING WALKER. V/S AND I&O TAKEN AND RECORDED. DINNER TRAY PUT AWAY. PATIENT BRUSHED HER TEETH. ICE WATER REFILLED. CALL LIGHT IN REACH.
--- NOTE | 2019-07-14 22:34 | NUR ---
PT UTILIZES CALL LIGHT, REQUESTS HER PM SCHEDULED MEDS. WRTIER TO ROOM. PT EXPRESSES DISPLEASURE IN REGARD TO LENGTH OF TIME IT TOOK TO GET HER MEDICATIONS THIS EVENING. PT REPORTS THAT SHE UTILIZED CALLLIGHT AT APPROXIMATELY 1950 AND NOBODY CAME TO SEE HER. PT STATES "WELL I AM JUST A SWING BED". PUBLIC HEALTH DIETITIAN APOLOGIZES TO PT. PT ASSESSMENT COMPLETE. PT RATES PAION 7/10, PRN OXYCODONE AND SCHEDULED MEDICATIONS ADMINISTERED. PT DENIES SOB OR NAUSEA. INCISION TO LOW BACK DRY AND CRUSTY. LYMPHEDEMA TO R ARM PRESENT, PT DECLINES TO WEAR SLEEVE AT THIS TIME. STATES IT IS "BREAKING HER SKIN DOWN". BLE EDEMA 1+ PITTING. LOTION APPLIED TO BLES PER PT REQUEST. PT DENIES FURTHER NEEDS AT THIS TIME. CALL LIGHT IN REACH.
--- NOTE | 2019-07-14 22:45 | NUR ---
PERCUSSION INSTRUMENT TUNER SAT AT BEDSIDE AND VISITED WITH PT. PT DESCRIBES HER POOR EXPERIENCE AT A SNF, AND STATES THAT SHE FELT A LITTLE LIKE THAT TONIGHT. PT ALSO STATES THAT SHE FELT LIKE SHE DIDN'T BELONG HERE WITH PEOPLE WHO WERE ACUTELY ILL, AND THAT SHE FELT PUSHED INTO A CORNER. PT IS APOLOGETIC FOR BEING UPSET EARLY. PERCUSSION INSTRUMENT TUNER APOLOGIZES TO PT WELL. PT DENIES FURTHER NEEDS AT THIS TIME. CALL LIGHT IN REACH.
--- NOTE | 2019-07-15 01:13 | NUR ---
PT RESTING IN BED WITH EYES CLOSED, WAKES WHEN RIDE OPERATOR OPENS THE DOOR. PT REPORTS PAIN, 05/07, CRAMPING TO R HIP, R GROIN. PRN FLEXIRIL ADMINISTERED. PT DENIES FURTHER NEEDS AT THIS TIME. CALL LIGHT IN REACH.
--- NOTE | 2019-07-15 03:30 | NUR ---
PT RESTING IN BED WITH EYES CLOSED, SNORING AUDIBLY. RESPIRATIONS EVEN AND UNLABORED. PT APPEARS TO BE SLEEPING. CALL LIGHT IN REACH.
--- NOTE | 2019-07-15 05:45 | NUR ---
PT SLEPT OFF AND ON THIS SHIFT. OXYCODONE AND FLEXIRIL FOR PAIN. PT/OT. 1 PA WITH FWW. COMPRESSION SLEEVE FOR LYMPHEDEMA AT BEDSIDE, BRADY HOSE OFF AT THIS TIME. SPINAL PRECAUTIONS, INCISION TO LOW BACK SCABBED. NO IV ACCESS. UO QS.
--- NOTE | 2019-07-15 06:20 | NUR ---
PT UTILIZES CALL LIGHT, REPORTS PAIN 8/10. PRN OXYCODONE ADMINISTERED. PT DENIES FUTHER NEEDS. CALL LIGHT IN REACH.
--- NOTE | 2019-07-15 06:55 | NUR ---
BEDSIDE HANDOFF REPORT RECEIVED FROM YACHT BUILDER RN. PT SLEEPING, LEFT UNDISTURBED.
--- NOTE | 2019-07-15 09:14 | NUR ---
PT RESTING IN BED, COMPLETED SHOWER WITH FILTRATION SUPERVISOR. PT RATING PAIN 7/10, GIVEN SCHEDULED TYLENOL AND GABAPENTIN. PT ON ROOM AIR, LUNG SOUNDS CLEAR. BOWEL TONES ACTIVE, DENIES NAUSEA, TOLERATING REGULAR DIET. PT WITH SWELLING TO RIGHT ARM AND BLE, PT AGREEABLE TO BRADY MARIA, AARON. DISCUSSED PLAN OF CARE FOR THE DAY, PT DENIES OTHER NEEDS AT THIS TIME.
--- NOTE | 2019-07-15 09:38 | NUR ---
RECEIVED A PHONE CALL FROM STEFANY AT IN [facility] STATING THAT PT IS NOT ELIGIBLE FOR WALKER THROUGH MEDICARE PT REPORTEDLY RECEIVED ON IN 2017. TALKED WITH PT REGARDING THIS AND SHE STATES "THEY TRIED TO GET ME TO SIGN FOR ONE WHEN I WAS AT [facility] WITH MY 1ST BACK SURGERY BUT I NEVER GOT ONE NOR DID I SIGN FOR ONE." EXPLAINED THAT IF SHE WANTED TO SHE COULD GET ONE FOR $84.96 OR SHE COULD RENT ONE MONTHLY. PT STATED SHE WILL USE THE ONE SHE HAS ALREADY AND SHE IS GOING TO CALL MEDICARE AND FIGURE OUT HOW THEY CAN SAY THAT WHEN SHE HAS NEVER GOTTEN A WALKER.
--- NOTE | 2019-07-15 09:45 | NUR ---
PT COMPLAINT OF BACK PAIN, GIVEN FLEXIRIL. PT DENIES OTHER NEEDS AT THIS TIME.
--- NOTE | 2019-07-15 13:27 | NUR ---
PT RESTING IN BED. PT HAS NO NEEDS AT THIS TIME.
--- NOTE | 2019-07-15 14:46 | NUR ---
PT ALERT, ORIENTED AND RESTING IN BED WITH TV ON. PT ALWAYS PLEASANT, GOOD VISIT. NIRU SANON IN FOR VS AND MEDS. EXTENDED A BLESSING, WILL FOLLOW NEEDED
--- NOTE | 2019-07-15 17:10 | NUR ---
PT COMPLAINT OF PAIN TO BACK, RATING PAIN 9/10, GIVEN 10 G OXYCODONE, LIDOCAINE PATCH APPLIED TO RIGHT LOWER BACK. PT SITTING IN CHAIR. PT DENIES OTHER NEEDS AT THIS TIME.
--- NOTE | 2019-07-15 17:56 | NUR ---
PT HAD UNEVENTFUL DAY. PT WORKED WITH PT/OT. PAIN WELL CONTROLLED WITH OXYCODONE AND FLEXIRIL, NEW ORDER FOR LIDOCAINE PACTH TO BACK. PT ON ROOM AIR, LUNG SOUNDS CLEAR. SBA WITH FWW, SPINAL PRECAUTIONS. PT WITHOUT IV ACCESS. PT TOLERATING REGULAR DIET, GOOD ORAL INTAKE.
--- NOTE | 2019-07-15 20:03 | NUR ---
PATIENT RESTING IN BED WATCHING TV.NO NEEDS AT THIS TIME. CALLL LIGHT IN REACH.
--- NOTE | 2019-07-15 21:53 | NUR ---
PATIENT GIVEN FRESH ICE WATER, VS DONE, LIDO PATCH TAKEN OFF PATIENT'S BACK, PM MEDS PASSED, AND PATIENT HAD NO OTHER NEEDS AND IS WATCHING TV FROM BED.
--- NOTE | 2019-07-16 00:14 | NUR ---
PATIENT RESTING IN SEMI-FOWLERS POSITION, REGULAR AND EVEN RESPIRATIONS, EYES CLOSED, AND CALL LIGHT IN REACH.
--- NOTE | 2019-07-16 02:13 | NUR ---
PATIENT RESTING IN SEMI-FOWLERS PSITION, RESPIRATIONS REGULAR AND EVEN WITH EYES CLOSED AND CALL LIGHT IN PLACE.
--- NOTE | 2019-07-16 04:23 | NUR ---
PATIENT JUST UP TO THE BATHROOM AND BACK TO BED WITH 1PSBA AND FWW. PATIENT HAVING 7/10 BACK PAIN AND GIVEN 10MG OF PO OXYCODONE AND GOING TO TRY AND GET SOME MORE SLEEP. PATIENT SAYS SHE HAS BEEN SLEEPING PRETTY WELL. CALL LIGHT IN REACH.
--- NOTE | 2019-07-16 06:12 | NUR ---
PATIENT HAS RESTED WELL MOST OF THE NIGHT EXCEPT FOR WHEN SHE NEEDED TO GET UP AND GO TO THE BATHROOM AND 10 MG OXYCODONE X2 THIS SHIFT WITH SCHEDULED TYLENOL AND 10MG FLEXARIL AT BEDTIME. STILL RESTING QUIETLY AT THIS TIME. RESPIRATIONS EVEN AND REGULAR, EYES CLOSED. CALL LIGHT IN REACH.
--- NOTE | 2019-07-16 06:55 | NUR ---
BEDSIDE HANDOFF REPORT RECEIVED FROM SPONGE PACKER RN. PT SLEEPING, LEFT UNDISTURBED.
--- NOTE | 2019-07-16 09:15 | NUR ---
PT COMPLETED WITH SHOWER, ASSISTED TO CHAIR. PT RATIGN PAIN 9/10, GIVEN SCHEDULED TYLENOL, LIDOCAINE PATCH AND PRN OXYCODONE 10 MG. PT ON ROOM AIR, LUNG SOUNDS CLEAR. BOWEL TONES ACTIVE, TOLERATING REGULAR DIET. PT WITH EDEMA TO RIGHT ARM AND BLE, CMS INTACT. INCISION TO BACK WITH FRESH SCAR, WITHOUT REDNESS. DISCUSSED PLAN OF CARE FOR THE DAY. OT TO BEDSIDE. PT DENIES OTHER NEEDS AT THIS TIME.
--- NOTE | 2019-07-16 10:16 | NUR ---
SPOKE WITH DAUGHTER TRAM BY PHONE [phone]. SHE STATES SHE CANNOT COME TO MDT MEETING TOMORROW MORNING SHE IS ALREADY SCHEDULED TO BE WORKING. BUS SHE CAN COME IN THIS AFTERNOON AT 1PM. SHE STATES SHE HAS SPOKEN WITH RADHA FROM [facility] WHO IS THEIR RIVET TOSSER AND THEY ARE LOOKING AT EXTRA HOURS FOR CARE GOING FORWARD. DISCUSSED WITH HER WE MIGHT BE ORDERING HOME HEALTH IF NEEDED AFTER DISCHARGE, ALSO. SHE IS IN AGREEMENT WITH THIS. WE DISCUSSED PATIENT COULD LIKELY DISCHARGE SUNDAY, BUT NO SET DATE YET. WILL MEET WITH HER IN ROOM AT 1PM TODAY WITH THERAPY IF AVAILABLE.
--- NOTE | 2019-07-16 10:40 | NUR ---
CAME TO FLOOR TO SEE PATIENT, STAFF STOPPED ME IN FRAZIER AND SAID PATIENT WAS UPSET BECAUSE A MEETING WAS SCHEDULED WITH DAUGHTER THIS AFTERNOON. DISCUSSED THAT THIS WAS JUST DONE BY PHONE AND I WAS COMING DOWN TO DISCUSS THIS WITH PATIENT. ENTERED PATIENTS ROOM, PATIENT WAS WITH PHYSICAL THERAPY, BUT THEY STATED THEY WOULD BE BACK SHORTLY. PATIENT STATES SHE IS "MAD HELL" BECAUSE MEETINGS ARE BEING ARRANGED BEHIND HER BACK. LISTENED TO PATIENTS CONCERNS. DISCUSSED WITH PATIENT THAT SPOKE WITH HER SUNDAY ABOUT MEETING WITH HER DAUGHTER AND THAT SHE WAS IN AGREEMENT HER DAUGHTER IS HER PAID CAREGIVER AND ALSO LIVES IN THE HOME WHERE SHE RESIDES. DISCUSSED THAT SHE AGREED THAT DAUGHTER SHOULD BE INVOLVED IN MDT MEETING THIS WEEK DUE TO POSSIBLE DISCHARGE COMING SOON. PATIENT THEN CALMED DOWN, "OH, THATS WHAT IT WAS ABOUT?" DISCUSSED THAT I WANTED TO FIND OUT WHAT DAY WAS BEST FOR HER DAUGHTER TO BE HERE SO WE CAN ARRANGE THERAPY AND DR TO BE INVOLVED. HER DAUGHTER STATED TODAY AT 1PM WOULD WORK, TOMORROW WAS A BUSY DAY FOR HER, SO THIS WAS AGREED ON AND I WAS ON MY WAY DOWN HERE TO DISCUSS WITH HER. PATIENT THEN STATED "MY DAUGHTER SAID YOU TOLD HER I WAS AFRAID TO GO HOME WITH HER". I DISCUSSED THAT WHAT WAS DISCUSSED WAS, SHE WAS AFRAID TO BE SENT HOME TOO SOON OR BEFORE SHE WAS READY AND THAT SHE AND I DISCUSSED THIS SUNDAY AT LENGTH AND I ASSURRED HER THAT WE ARE TRYING TO MAKE SURE SHE AND HER DAUGHTER ARE READY FOR HER TO GO HOME WHEN DISCHARGED. AGAIN, SHE STATES "OH I MUST HAVE HEARD HER WRONG". PATIENT MUCH CALMER. DISCUSSED WHAT MDT MEETINGS ARE, SHE STATES SHE NEVER KNEW ABOUT THESE, I ASKED IF SHE REMEMBERED LAST WEEK WHEN THEY ALL CAME IN AND WENT OVER GOALS, THIS SHE DID REMEMBER. SHE IS OK WITH THIS HAPPENING TODAY. DISCUSSED THAT MEDICARE COVERAGE WITH TRANSITIONAL CARE PROGRAM, DISCUSSED AT 21 DAYS THERE IS COPAY. SHE STATES SHE HAS NEVER HEARD THIS BEFORE. EXPLAINED NORMALLY WE DISCUSSED THIS WHEN ADMITTED. EXPLAINED REGARDLESS OF IF SHE NEEDS PAST 21 DAYS, SHE ONLY IS DISCHARGED WHEN PT/OT AND MD FEEL SHE NO LONGER NEEDS INPATIENT THERAPY. DISCUSSED WE CAN ORDER HOME HEALTH PT OR IF SHE IS UP TO IT, SHE CAN GO TO OUTPATIENT THERAPY AT THE CLINIC OF CHOICE. SHE STATES UNDERSTANDING. DISCUSSED WE WILL COVER ALL THIS AGAIN BEFORE SHE IS READY TO DISCHARGE. QUESTIONS ANSWERED.
--- NOTE | 2019-07-16 10:43 | NUR ---
AYANA CHARLES AND I CHECKED ON PT. SHE WAS IN GOOD SPIRITS TODAY, LAUGHED AND JOKED WITH BOTH OF US. EXTENDED A BLESSING, WILL FOLLOW NEEDED
--- NOTE | 2019-07-16 12:41 | NUR ---
PT SITTING IN CHAIR, EATING LUNCH. PT COMPLAINT OF BACK SPASMS, WORSE DURING THERAPY, GIVEN FLEXIRIL PER ORDER. PT REQUESTING 10 MORE MINUTES IN CHAIR AND THEN IS AGREEABLE TO GET TO BED FOR CARE CONFERENCE. PT DENIES OTHER NEEDS AT THIS TIME.
--- NOTE | 2019-07-16 13:27 | NUR ---
MDT CARE CONFERENCE COMPLETED. PT/OT, PHARMACIST, MD, CASE MANAGEMENT, RN, AND DAUGHTER DANIELA IN MEETING. DISCUSSED BARRIERS TO DC. PLAN FOR DC ON SUNDAY OR SUNDAY.
--- NOTE | 2019-07-16 14:08 | NUR ---
AFTER MDT MEETING DISCUSSED WITH PATIENT AND DAUGHTER ALEX WHAT HOME HEALTH TO USE, THEY INDICATED [facility]. WE DISCUSSED ALSO FOLLOW UP WITH PCP, PATIENT SPENT 15 MINUTES STATING SHE DOESN'T THINK SHE WANTS TO CONTINUE SEEING ESTELLA (HER PCP) AND WHY GOING FORWARD. DISCUSSED WITH THEM SHE CERTAINALY CAN FIND A NEW PCP, BUT THIS TAKES SOME TIME TO FIND SOMEONE NEW AND THIS MIGHT NOT BE A GOOD TIME TO START THAT PROCESS. PATIENT THEN STATED SHE MIGHT JUST CONTINUE WITH ESTELLA FOR NOW. WE DISCUSSED POSSIBLE DISCHARGE SUNDAY OR SUNDAY. DAUGHTER STATES SHE IS AVAILABLE EITHER DAY, BUT NOT SUNDAY MORNING BEFORE 10. REASSURRED HER DISCHARGE IS ANYTIME BUT USUALLY AFTER 2PM. ALL QUESTIONS ANSWERED AT THIS TIME. WILL CONTINUE TO FOLLOW.
--- NOTE | 2019-07-16 14:30 | NUR ---
PT REQUESTING PAIN MEDICATION. GIVEN 5 MG OXYCODONE, DISCUSSED DECREASE IN PAIN MEDIATION AND AVAILABILITY FOR FLEXIRIL TO HELP WITH SPASMS, PT VERBALIZED UNDERSTANDING. PT DENIES OTHER NEEDS AT THIS TIME. P.T. TO ROOM TO WORK WITH PT.
--- NOTE | 2019-07-16 16:28 | NUR ---
CALL LIGHT ANSWERED. PATIENT USING BATHROOM. PATIENT BACKS TO BED. JUICE GIVEN. CALL LIGHT WITHIN REACH. NO OTHER NEEDS AT THIS TIME
--- NOTE | 2019-07-16 19:39 | NUR ---
PATIENT HAS NO NEEDS AT THIS TIME. RESTING IN BED WATCHING TV, CALL LIGHT IN REACH.
--- NOTE | 2019-07-16 20:51 | NUR ---
PATIENT UP NOW WITH ROBOTICS SPECIALIST TO THE BATHROOM WITH 1PSBA AND FWW. EVENING MEDS DONE. BACK PAIN 06/07 AND MEDICATED FOR THAT.
--- NOTE | 2019-07-16 22:32 | NUR ---
PATIENT RESTING QUIETLY IN SEMI-FOWLERS POSITION, EYES CLOSED, RESPIRATIONS REGULAR AND EVEN. CALL LIGHT IN REACH.
--- NOTE | 2019-07-17 00:41 | NUR ---
PATIENT AWAKE IN BED. RESTING QUIETLY. NO NEEDS AT THIS TIME. CALL LIGHT IN REACH.
--- NOTE | 2019-07-17 02:04 | NUR ---
PATIENT RESTING QUIETLY IN BED, EYES CLOSED, RESPIRATIONS REGULAR AND EVEN. CALL LIGHT IS IN REACH.
--- NOTE | 2019-07-17 02:09 | NUR ---
PATIENT JUST UP TO THE BATHROOM WITH ANTHONYW AND OMEGA RODRIGUEZ AND NOW ON HER WAY BACK TO BED.
--- NOTE | 2019-07-17 03:08 | NUR ---
PATIENT RESTING QUIETLY ON HER RIGHT SIDE WITH REGULAR AND EVEN RESPIRATIONS, EYES CLOSED AND CALL LIGHT IN REACH.
--- NOTE | 2019-07-17 05:10 | NUR ---
PATIENT HAS RESTEDED ABOUT WELL LAST NIGHT EVEN THOUGH HER OXYCODONE DOSAGE WAS DECREASED. PATIENT HAS ONLY TAKEN 1 PILL FROM ME SO FAR THIS SHIFT AND HAS BEEN RESTING QUIETLY EXCEPT HAVING TO GO TO THE RESTROOM.
--- NOTE | 2019-07-17 07:22 | NUR ---
REPORT RECEIVED FROM NIRU RUFF. PT AWAKE AND WATCHING TV. PT REPORTS 8/10 PAIN AND STATES SHE JUST RECEIVED A PAIN PILL. PT DENIES ADDITIONAL REQUESTS OR COMPLAINTS AT THIS TIME. CALL LIGHT WITHIN REACH.
--- NOTE | 2019-07-17 08:46 | NUR ---
patient up to bathroom standing at sink brushing her teeth and washing face. patient back to chair with call button in reach. fresh ice water given. no other needs at this time.
--- NOTE | 2019-07-17 09:20 | NUR ---
PT OBSERVED WORKING WITH PHYSICAL THERAPY. PT REPOTS 8 PAIN. PAIN MEDICATIONS BROUGHT TO PHYSICAL THERAPY ROOM.
--- NOTE | 2019-07-17 09:40 | NUR ---
PT RETURNED FROM WORKING WITH PHYSICAL THERAPY. PT UP TO CHAIR. PT CONTINUES TO REPORT 8/10 PAIN IN BACK AND RIGHT SIDE (SEE MAR FOR MEDICATIONS GIVEN). ICE PACK PROVIDED WELL. ASSESSMENT DONE. +2 EDEMA NOTED IN BLE. INCISION C/D/I, EDGES APROXIMATED. PT DEMONSTRATES USE OF I.S. REACHING 2200. PT READING NEWS PAPER AND WATCHING TV. NO ADDITIONAL REQUESTS OR COMPLAINTS AT THIS TIME. CALL LIGHT WITHIN REACH.
--- NOTE | 2019-07-17 10:44 | NUR ---
THIS RN TO ROOM TO CHECK ON PT. PT REPORTS 05/07 PAIN STATING "I'M AT MY NORMAL 7." PT DENIES NEED FOR ADDITIONAL PAIN INTERVETIONS AT THIS TIME STATING "WE'LL JUST LET THEM (THE MEDICATIONS) KICK IN MORE." PT VISTS WITH THIS RN ABOUT HER STAY AT THE HOSPITAL STATING SHE HAS HAD A "GOOD" EXPERIENCE. WATER REFILLED. NO ADDITIONAL REQUESTS OR COMPLAINTS. AT THIS TIME. CALL LIGHT WITHIN REACH.
--- NOTE | 2019-07-17 12:10 | NUR ---
HOME HEALTH ORDER, CLINICALS FAXED TO [facility] [phone]. FAX CONFIRMATION RECEIVED 07/17/19 1209PM. CALLED AND SPOKE WITH JUAN DANIEL WHO STATES SHE RECEIVED THEM. SHE STATES THEY CAN ADMIT PATIENT ANYTIME FRI-SUN AND WILL CONTACT PATIENT AND HER DAUGHTER AT DISCHARGE. SHE STATES TO HAVE STAFF NOTIFY THEY OF DISCHARGE AND TO SEND DISCHARGE SUMMARY. STAFF UPDATED. DISCUSSED WITH DANIELA KN[facility] THAT SUMMARY NEEDS FAXED AT DISCHARGE AND TO CALL [facility]. STATES UNDERSTANDING.
--- NOTE | 2019-07-17 12:31 | NUR ---
PT CALL LIGHT ON. PT REQUESTS ASSISTANCE BACK TO BED. 1PA, FWW BACK TO BED. PT ABLE TO SIT IN BED BUT HAS DIFFICULTY LIFTING LEGS INTO BED. PT REPORTS 7/10 PAIN (SEE MAR FOR MEDICAITON GIVEN). PT RESTING IN BED. WATER REFILLED. NO ADDITIONAL REQUESTS OR COMPLAINTS AT THIS TIME. CALL LIGHT WITHIN REACH. BED RAILS UP.
--- NOTE | 2019-07-17 13:45 | NUR ---
SPOKE WITH PATIENT IN ROOM. DISCUSSED THAT ORDERS FOR HOME HEALTH HAVE BEEN SENT TO [facility] WHICH SHE AND HER DAUGHTER CHOOSE YESTERDAY. DISCUSSED IF SHE IS DISCHARGED TOMORROW PLANNED, THE NURSE WILL BE CONTACTING THEM TO SET UP A TIME ON THE WEEKEND FOR THE RN TO COME TO HER HOME. SHE STATES UNDERSTANDING. SHE STATES "I DON'T KNOW, I MIGHT LIKE TO STAY TILL SUNDAY". DISCUSSED THAT DEPENDING ON HER THERAPY NEEDS AND WHAT SHE AND THE MD DECIDE, DISCHARGE WILL LIKELY BE ANYTIME TOMORROW OR THROUGH WEEKEND. SHE STATED UNDERSTANDING. NO FURTHER QUESTIONS, PATIENT STATES SHE WANTS TO TAKE A NAP.
--- NOTE | 2019-07-17 14:58 | NUR ---
PT FINISHED WITH SHOWER. PT REPORTS 8/10 PAIN AFTER HER SHOWER. SEE MAR FOR MEDICATIONS GIVEN. PT REQUESTS "ANTIBIOTIC OINTMENT" FOR SCRATCHES ON HER LEG. WILL REQUEST FROM . PT UP TO CHAIR. PEOPLESOFT DEVELOPER WORKING WITH PT. NO ADDITIONAL REQUESTS OR COMPLAINTS AT THIS TIME.
--- NOTE | 2019-07-17 15:00 | NUR ---
PT RETURNED FROM CT. PT REPORTS HUNGER. CLEAR LIQUIDS AND JELLO OFFERED. PT DECLINES JELLO "BECAUSE OF THE ANIMALS." VEGEABLE BROTH PROVIDED. PT DENIES ADDITIONAL REQUESTS OR COMPLAINTS. CALL LIGHT WITHIN REACH. BED RAILS. UP.
--- NOTE | 2019-07-17 17:30 | NUR ---
THIS RN TO ROOM TO CHECK ON PT. PT REPORTS PAIN IS "STILL THE SAME." PT WANTS TO "WAIT UNTIL CLOSER TO BED" FOR FLEXERIL. PT REQUESTS BACITRACIN CREAM FOR "THIS SCRATCH ON MY LEG." CONSULTED AND STATES OK TO GIVE PT PACKET OF BACITRACIN OINTMENT. PT UP TO CHAIR AND DENIES ADDITIONAL REQUESTS OR COMPLAINTS. CALL LIGHT WITHIN REACH.
--- NOTE | 2019-07-17 19:00 | NUR ---
PT SWING BED FOR DECONDITIONING. PT UP WITH PHYSICAL THERAPY X2 THIS SHIFT. PT UP FOR SHOWER. PAIN CONTINUES IN RIGHT LOWER EXTREMITY, PRN MEDICATIONS GIVEN FREQUENTLY. SWING BED ACTIVITIES OFFERED AND DONE. PT ANTICIPATING DISCHRAGE TOMORROW OR SUNDAY. PT USES CALL LIGHT APPROPRIATLY.
--- NOTE | 2019-07-17 20:40 | NUR ---
PATIENT HAS NO NEEDS AT THIS TIME, PM MEDS HAVE BEEN PASSED AND PATIENT WATCHING TV. CALL LIGHT IN REACH.
--- NOTE | 2019-07-17 21:04 | NUR ---
CHARGE NURSE ROUNDING. pt RESTING IN BED WATCHING TV. NO REQUESTS OR COMPLAINTS AT THIS TIME. CORRECT WRIST BANDS IN PLACE. CALL LIGHT WITHIN REACH. WHITEBOARD UPDATED.
--- NOTE | 2019-07-17 21:04 | NUR ---
VITALS AND I&OS DONE AND CHARTED. FRESH WATER GIVEN. BEDSIDE TABLE AND CALL LIGHT IN REACH. TWO WARM BLANKETS GIVEN PER PT REQUEST.
--- NOTE | 2019-07-17 23:08 | NUR ---
PATIENT RESTING QUIETLY SUPINE, RESPIRATIONS REGULAR AND EVEN, CALL LIGHT IN REACH, EYES CLOSED. CALL LIGHT IN REACH.
--- NOTE | 2019-07-18 01:15 | NUR ---
PATIENTWANTING TO KNOW WHEN SHE CAN HAVE PAIN MEDS AGAIN AND I INFORMED HER 2 AM. PATIENT GOT UP AND WENT TO THE BATHROOM AND VOIDED AND BACK TO BED WITH FWW AND 1PSBA. PATIENT GOING TO TRY AND GET SOME MORE SLEEP. CALL LIGHT IN REACH.
--- NOTE | 2019-07-18 03:15 | NUR ---
PATIENT RESTING QUIETLY SUPINE, EYES CLOSED, RESPIRATIONS REGULAR AND EVEN, CALL LIGHT IN REACH.
--- NOTE | 2019-07-18 04:14 | NUR ---
PATIENT JUST WOKE UP AND SAID HER BACK AND LEG PAIN WAS ABOUT 8/10 AND RECEIVED HER FLEXARIL AND OXYCODONE AND IS GOING TO TRY AND GET SOME MORE SLEEP. CALL LIGHT IN REACH.
--- NOTE | 2019-07-18 05:05 | NUR ---
PATIENT HAS RESTED PRETTY WELL THROUGH THE NIGHT BETWEEN HER PAIN MEDICATION DOSES AND IS MORE MOBILE WHEN GETTING UP TO THE BATHROOM. PAIN IS USUALLY ABOUT 8/10 BEFORE SHE ASKS FOR MEDICATION. PATIENT SEEMS IN GOOD SPIRITS WHEN AWAKE. RESTING QUIETLY NOW, EYES CLOSED, RESPIRATIONS EVEN AND REGULAR, AND CALL LIGHT IN REACH.
--- NOTE | 2019-07-18 07:52 | NUR ---
PATIENT UP TO BATHROOM TO VOID, USED WALKER, STANDBY ASSIST. PATIENT AMBULATED TO CHAIR, SITTING UP FOR BREAKFAST. CALL LIGHT WITHIN REACH.
--- NOTE | 2019-07-18 08:00 | NUR ---
PATIENT SITTING UP IN CHAIR TAKING HER BREAKFAST. LINENS CHANGED. SETS UP BATHROOM FOR SHOWER. CALL LIGHT WITHIN REACH. NO OTHER NEEDS AT THIS TIME
--- NOTE | 2019-07-18 08:58 | NUR ---
ATE 100% OF BREAKFAST, LOOKING FORWARD TO HAVING A SHOWER, REPORTS GOOD PAIN CONTROL AFTER OXYCODONE. DENIES ANY NEEDS.
--- NOTE | 2019-07-18 10:08 | NUR ---
PATIENT SITTING UP IN CHAIR. VITAL SIGNS AND I&O DONE. PATIENT GOES TO THE BATHROOM TO TAKE A SHOWER. PATIENT USES WALKER. ONE PERSON ASSISTING. PATIENT BACKS TO BED. CALL LIGHT WITHIN REACH. NO OTHER NEEDS AT THIS TIME.
--- NOTE | 2019-07-18 11:39 | NUR ---
WALKED WITH PT AROUND LOOP IN HALLS, TOLERATED WELL, REQUESTED PAIN MEDICATION AFTER THERAPY. OXYCODONE GIVEN, SITTING UP IN RECLINER WATING FOR LUNCH.
--- NOTE | 2019-07-18 12:49 | NUR ---
PT ADMITTED THAT SHE HOPES SHE CAN STAY ONE MORE DAY TO GET STRONGER AND MAYBE ALITTLE MORE COURAGE TO STAY MOTIVATED AT HOME. SHE ALSO IS WORKING TO ADJUST TO CHANGES IN HER HEALTH. PT REQUESTED PRAYER, WILL FOLLOW NEEDED
[2019-07-18] MEDS ORDERED: OXYCODONE HCL5 MG PO (12:56)
[2019-07-18] MEDS ORDERED: HEALTHYLAX17 GM PO (12:57)
[2019-07-18] MEDS ORDERED: TYLENOL EXTRA500 MG PO (12:57)
[2019-07-18] MEDS ORDERED: GABAPENTIN400 MG PO (12:57)
[2019-07-18] MEDS ORDERED: MELATONIN3 MG PO (12:58)
[2019-07-18] MEDS ORDERED: LIDOCAINE1 EACH TD (12:58)
[2019-07-18] MEDS ORDERED: SENNA-TIME S T1 EACH PO (12:58)
--- NOTE | 2019-07-18 13:09 | NUR ---
DR SCHMIDT IN TO SEE PT AND DISCUSSING POSSIBLE DC HOME TODAY.
--- NOTE | 2019-07-18 13:33 | NUR ---
PATIENT SITTING UP IN CHAIR. I&O DONE. CALL LIGHT WITHIN REACH. NO OTHER NEEDS AT THIS TIME
--- NOTE | 2019-07-18 13:52 | NUR ---
PATIENT SITTING UP IN CHAIR. PATIENT IS WEARING HER REGULAR CLOTHES. FINAL VITAL SIGNS WERE OBTAINED BEFORE BEING DISCHARGED TO HOME. CALL LIGHT WITHIN REACH. NO OTHER NEEDS AT THIS TIME
--- NOTE | 2019-07-18 13:53 | NUR ---
REVIEWED DISCHARGE INSTRUCTIONS WITH PATIENT, VERBALIZES UNDERSTANDING OF INSTRUCTIONS. PERSCRIPTION GIVEN FOR OXYCODONE. STATES SHE IS PLEASED WITH CARE, NO FURTHER QUESTIONS.
== END 2019-07-18 14:20 | disposition home health service (06) | DRG 561 ==
LOC: MS 10:54
PROVIDERS: ADMIT Student in an Organized Health Care Education/Training Program
DX: Z47.89 Encounter for other orthopedic aftercare (principal); M79.651 Pain in right thigh; G47.00 Insomnia, unspecified; I10 Essential (primary) hypertension; G89.29 Other chronic pain; M54.9 Dorsalgia, unspecified; R60.0 Localized edema; Z85.3 Personal history of malignant neoplasm of breast; Z79.891 Long term (current) use of opiate analgesic; Z79.899 Other long term (current) drug therapy; Z88.5 Allergy status to narcotic agent; Z88.8 Allergy status to other drugs, medicaments and biological substances; Z88.2 Allergy status to sulfonamides
CPT/HCPCS: 90662; 97110; 97116; 97163; 97167; 97530; 97535

== ENCOUNTER 2022-04-06 05:50 | Day surgery (SDC) | payer MEDICARE, OTHER ==
[~2022-04-06] VITALS: Ht 170.2 cm; Wt 111.3 kg
[~2022-04-06 05:50] MED LIST changes: +AMOXICILLIN500 MG PO; +CONSTULOSE10 GM/15 M PO; +CYCLOBENZAPRINE10 MG PO; +GABAPENTIN400 MG PO; +HEALTHYLAX17 GM PO; +IBUPROFEN800 MG PO; +LIDOCAINE1 EACH TD; +LOSARTAN-HCTZ1 EAC1 PO; +MELATONIN3 MG PO; +NEURONTIN300 MG PO; +ONE-TABLET-DAI1 EACH PO; +OXYCODONE HCL5 MG PO; +PERCOCET 10-321 EACH PO; +SENNA-TIME S T1 EACH PO; +TYLENOL EXTRA500 MG PO; +VITAMIN D325 MC4 PO
--- NOTE | 2022-04-06 08:37 | NUR ---
04/06/22 0837 Sheets,Constance [id number] PT ARRIVED TO PACU ON 6L VIA MASK PT WOKE EASILY AND REPORTS PAIN AND NO NAUSEA. VSS. PT REPORTS BASELINE PAIN 7-06/07.
--- NOTE | 2022-04-06 14:38 | OR ---
[facility] [address], [place] [address] Signed DATE OF OPERATION: 04/06/2022 SURGEON: Grant French MD PREOPERATIVE DIAGNOSES: 1. History of right stage III breast cancer status post right modified radical mastectomy. Postoperative chemoradiation therapy. 2. Persistent implanted Port-A-Cath (2011) left subclavian area. POSTOPERATIVE DIAGNOSES: 1. History of right stage III breast cancer status post right modified radical mastectomy. Postoperative chemoradiation therapy. 2. Persistent implanted Port-A-Cath (2011) left subclavian area. 3. Non expandable catheter related to Port-A-Cath device. 4. Suspicious skin lesion, left pectoral area (possible basal cell carcinoma). PROCEDURES: 1. Explantation of Port-A-Cath and portion of catheter with securing of remaining catheter to subcutaneous tissue. 2. Excision of suspicious skin lesion (3.8 cm excision size), left pectoral area. ANESTHESIA: Local with monitored anesthesia care (Shane Muhammad CRNA); lidocaine 1% with epinephrine. INDICATION: This 77-year-old white woman is a patient of Dr. Yuni Morton and in 2011, [facility] multicentric breast cancer with multiple positive lymph nodes, ultimately requiring right modified radical mastectomy with subsequent adjuvant therapy including chemotherapy. She has had a highly functioning Port-A-Cath since 2011 (10 years). She no longer requires a Port-A-Cath device. She has had it flushed and managed up until about eight months ago when it did not easily withdraw blood. On that basis, as it is no longer needed and no longer functional in any way explantation was recommended by Dr. Morton. A chest x-ray was performed, which shows the catheter to be intact and unchanged since its application. The patient understands the risks of bleeding, infection, and importantly failure to fully explant the device given its length of the time in position for which the catheter transection and security to the subcutaneous space may be required. Understanding these Electronically Signed By: GRANT FRENCH MD 04/06/22 1438 PATIENT NAME: RAMIREZ LOPEZ OPERATIVE REPORT DATE OF : 41 REPORT #: [id number] PHYSICIAN: GRANT FRENCH MD PCP: YUNI MORTON MD REPORT IS CONFIDENTIAL AND NOT TO BE RELEASED WITHOUT AUTHORIZATION [facility] [address], [place] [address] Signed risks, she wished to proceed. FINDINGS: The catheter indeed was "stuck" in the region of the clavicle. The catheter was explanted approximately 4 inches including the port itself. Remaining catheter was secured to the subcutaneous tissue with Prolene suture for future reference should other interventions be considered for full removal of the catheter itself. Additionally noted was a suspicious skin lesion inferior to this area which may represent a basal cell carcinoma. This was excised with a clinically negative margin as well. DESCRIPTION OF PROCEDURE: The patient was brought to the operating room, and given intravenous sedation. The left chest area was evaluated and prepared with chlorhexidine solution and draped sterilely. The palpable Port-A-Cath was easily identified as was the incision, which was directly over it. A 1% lidocaine with epinephrine was injected directly under the previous incision site and a transverse incision was made. Dissection was carried through subcu tissue with electrocautery. The capsule over the port device was incised and the port found to have old thrombus within it. Further dissection at the neck and collar of the device in relation to the catheter was undertaken freeing the catheter. Initially it easily withdrew, but then became stuck and would not further move. Steady tension was placed on the catheter. Ultimately, it was clear that it would not budge and further efforts would likely rupture the catheter and therefore the catheter was secured to the subcutaneous fibrotic tract with two separate interrupted 2-0 Prolene sutures. The so as to identify the catheter in the future if other interventions were to be considered for explantation. The wound was then closed with interrupted 3-0 Vicryl and the skin closed with running subcuticular 3-0 Vicryl. Inferior to this incision was a suspicious skin lesion, possibly basal cell carcinoma. It is irregular, erythematous and somewhat ulcerated. This area was deemed appropriate for excision on the high probability it represents a skin cancer. Elliptical excision was undertaken with a clinically negative margin. Excision size was 3.8 cm. The wound was closed with running subcuticular 3-0 Vicryl and electrocautery was used to secure hemostasis. Steri-Strips were applied to both the wounds. A gauze dressing was applied. The patient was allowed to emerge from sedation and taken to the recovery room in good condition having suffered no complications. Sponge, needle, and instrument counts were reported as correct x3. Electronically Signed By: GRANT FRENCH MD 04/06/22 1438 PATIENT NAME: RAMIREZ LOPEZ LIANNA OPERATIVE REPORT DATE OF : 41 REPORT #: [id number] PHYSICIAN: GRANT FRENCH MD PCP: YUNI MORTON MD REPORT IS CONFIDENTIAL AND NOT TO BE RELEASED WITHOUT AUTHORIZATION [facility] [address] [place] [address] Signed MD KELVIN Nguyen/RHYSL /[id number] cc: Yuni Morton MD Copies: YUNI MORTON MD ~ Electronically Signed By: GRANT FRENCH MD 04/06/22 1438 PATIENT NAME: RAMIREZ LOPEZ OPERATIVE REPORT DATE OF : 41 REPORT #: [id number] PHYSICIAN: GRANT FRENCH MD PCP: YUNI MORTON MD REPORT IS CONFIDENTIAL AND NOT TO BE RELEASED WITHOUT AUTHORIZATION
--- NOTE | 2022-04-11 11:18 | PATH ---
[facility] [address] [facility] [place], [place] [address] Signed THIS IS AN ADDENDUM REPORT SPECIMEN(S): A LEFT PECTORAL AREA SPECIMEN SOURCE: A. LEFT PECTORAL AREA CLINICAL HISTORY: History of breast ca. FINAL PATHOLOGIC DIAGNOSIS: Skin, left pectoral area, excision: - Squamous cell carcinoma in situ. - See comment. COMMENT: Additional sections are pending to assess margin status. An addendum report will follow. MEREDITHK:emh:[id number] MICROSCOPIC EXAMINATION: Histologic sections of all submitted blocks are examined by light microscopy. These findings, together with the gross examination, support the pathologic diagnosis. GROSS DESCRIPTION: The specimen, labeled "DK, A," and designated on the requisition "left pectoral area 3.8 cm skin lesion," is received in formalin and consists of a 2.5 x 1.3 x 0.4 cm, unoriented skin ellipse. The cutaneous surface contains a central slightly hyperpigmented lesion, measuring 0.1 from the nearest margin. The specimen is inked blue, serially sectioned and entirely submitted in cassette (A1-A2). AT (under the direct supervision of a pathologist) The Gross Description was prepared using a voice recognition system. The report was reviewed for accuracy; however, sound-alike word errors, addition and/or deletions may occur. If there is any question about this report, please contact Client Services. PERFORMING LABORATORY: The technical component was performed by [employer], [address] [place] [id number] (CLIA# [id number]). The professional interpretation was PATIENT NAME: RAMIREZ LOPEZ PATHOLOGY DATE OF : 41 REPORT #: [id number] PHYSICIAN: MITCHELL DELGADO PCP: YUNI MORTON MD REPORT IS CONFIDENTIAL AND NOT TO BE RELEASED WITHOUT AUTHORIZATION [facility] [address] [facility] [place] [address] Signed [facility], [facility] [place] [address] [address] (CLIA#: [id number]). REASON FOR ADDENDUM: To add results of additional testing. ADDENDUM COMMENT: Multiple serial sections reveal all surgical resection margins to be free of squamous cell carcinoma in situ. The tumor extends within a fraction of 1 mm to an undesignated margin. TWK:[facility] Diagnostician: Tesfaye Adrian MD Pathologist Electronically Signed 04/11/2022 Copies: ~ PATIENT NAME: RAMIREZ LOPEZ PATHOLOGY DATE OF : 41 REPORT #: [id number] PHYSICIAN: MITCHELL DELGADO PCP: YUNI MORTON MD REPORT IS CONFIDENTIAL AND NOT TO BE RELEASED WITHOUT AUTHORIZATION
== END 2022-04-06 09:08 | disposition home or self-care (01) ==
LOC: DS 05:50
PROVIDERS: ATTEND Surgery
PROC: 0HB5XZZ Excision of Chest Skin, External Approach (ICD-10-PCS; 2022-04-06)
PROC: 0HB5XZZ Excision of Chest Skin, External Approach (ICD-10-PCS; 2022-04-06)
PROC: 0JPV0WZ Removal of Totally Implantable Vascular Access Device from Upper Extremity Subcutaneous Tissue and Fascia, Open Approach (ICD-10-PCS; principal; 2022-04-06 07:00)
DX: D04.5 Carcinoma in situ of skin of trunk (principal); C50.911 Malignant neoplasm of unspecified site of right female breast; E66.01 Morbid (severe) obesity due to excess calories; Z68.37 Body mass index [BMI] 37.0-37.9, adult; Z88.6 Allergy status to analgesic agent; Z88.0 Allergy status to penicillin; Z88.2 Allergy status to sulfonamides; Z88.8 Allergy status to other drugs, medicaments and biological substances; I10 Essential (primary) hypertension; Z95.828 Presence of other vascular implants and grafts
CPT/HCPCS: 00300; 71045; 88305; J0131; J1100; J1885; J2001; J2405; J2704; J3010; J7121

== ENCOUNTER 2025-02-13 11:17 | Emergency (ER) | payer MEDICARE, OTHER ==
[~2025-02-13] VITALS: Ht 170.2 cm; Wt 92.2 kg
[2025-02-13] MEDS ORDERED: METFORMIN HCL500 MG PO (13:51)
[2025-02-13 14:27] LABS: ALBUMIN 3.7 g/dL (3.4-5.0); ALBUMIN/GLOBULIN RATIO 1.09 (1.1-2.4); ANION GAP 15.8 (7-21); BILIRUBIN, TOTAL 1.1 mg/dL (0.2-1.0); BUN/CREATININE RATIO 16.9 (6.0-28.6); CALCIUM 9.3 mg/dL (8.5-10.1); CREATININE, SERUM 1.42 mg/dL (0.55-1.02); POTASSIUM 2.8 mmol/L (3.5-5.1); PROTEIN, TOTAL 7.1 g/dL (6.4-8.2)
[2025-02-13] MEDS ORDERED: KLOR-CON 1010 MEQ PO (14:54)
[2025-02-13] MEDS ORDERED: POTASSIUM CHLORIDE 10 MEQ TABCR PO ONE (15:00)
[2025-02-13 15:04] VITALS: BP 164/65
== END 2025-02-13 15:03 | disposition home or self-care (01) ==
LOC: ED 11:17
PROVIDERS: Emergency Medicine
DX: E87.6 Hypokalemia (principal); E11.9 Type 2 diabetes mellitus without complications; Z88.2 Allergy status to sulfonamides; Z88.5 Allergy status to narcotic agent; Z88.9 Allergy status to unspecified drugs, medicaments and biological substances
CPT/HCPCS: 36415; 80053; 99283; A9270